=== PATIENT | male | born 1930 | race Caucasian/White ===

== ENCOUNTER 2017-06-16 20:40 | Inpatient (IN) | payer MEDICARE, MEDICAID ==
[~2017-06-16] VITALS: Ht 193 cm; Wt 109.8 kg
[2017-06-16] MEDS ORDERED: Acetaminophen 500mg (ES) tab ORAL ONE (21:00)
--- NOTE | 2017-06-16 21:11 | Emergency Room Report ---
History of Present Illness General Chief Complaint: Altered Level of Consciousness Source: EMS Present Illness HPI Is an 87-year-old male coming from home. He has unknown medical problem but appear to be aphasic. He was presents with altered mental status for last 2 days per EMS. Unfortunately no family member here for history. Unknown other medical history. History is very limited because patient is not answering. Allergies: Coded Allergies: No Known Allergies (Verified , 01/23/07) Patient History Past Medical History: see triage record, old chart reviewed, unable to obtain Past Surgical History: unable to obtain, other Pertinent Family History: unable to obtain Social History: Denies: alcohol use Immunizations: other Reviewed Nursing Documentation: PMH: Agreed, PSxH: Agreed Nursing Documentation-PMH Hx Hypertension: Yes Hx Pacemaker: Yes Hx Diabetes: Yes Review of Systems Constitutional: Reports: weakness Respiratory: Reports: cough All Other Systems: limited - Secondary to his mental status Physical Exam Vital Signs Date Time Temp Pulse Resp B/P (MAP) Pulse Ox O2 Delivery O2 Flow Rate FiO2 06/16/17 20:34 100.2 79 20 121/68 94 Room Air vitals with fever Sp02 EP Interpretation: reviewed, normal General Appearance: well appearing, no apparent distress, alert Head: normocephalic, atraumatic Eyes: bilateral eye PERRL, bilateral eye EOMI ENT: hearing grossly normal, normal pharynx Neck: full range of motion, supple, no meningismus Respiratory: chest non-tender, rhonchi Cardiovascular #1: regular rate, rhythm, no murmur Gastrointestinal: normal bowel sounds, non tender, no mass, no organomegaly, no bruit, non-distended Musculoskeletal: back normal, normal range of motion Neurologic: alert, grossly normal Psychiatric: mood/affect normal Skin: warm/dry Medical Decision Making Diagnostic Impression: Primary Impression: Sepsis Qualified Codes: A41.9 - Sepsis, unspecified organism Additional Impressions: Pneumonia Qualified Codes: J18.1 - Lobar pneumonia, unspecified organism Encephalopathy acute ER Course This patient presents with fever and altered mental status. He has left lower lobe infiltrate on the chest x-ray. Antibiotic started. He looks better after IV fluid. No evidence of ACS, PE, dissection to name a few. Will admit. I discussed the case with Dr. Priest who said the patient for admission. Laboratory Tests Test 06/16/17 21:00 06/16/17 21:20 06/16/17 23:00 White Blood Count 11.6 K/UL (4.8-10.8) H Red Blood Count 4.17 M/UL (4.70-6.10) L Hemoglobin 12.2 G/DL (14.2-18.0) L Hematocrit 39.2 % (42.0-52.0) L Mean Corpuscular Volume 94 FL (80-99) Mean Corpuscular Hemoglobin 29.1 PG (27.0-31.0) Mean Corpuscular Hemoglobin Concent 31.0 G/DL (32.0-36.0) L Red Cell Distribution Width 13.0 % (11.6-14.8) Platelet Count 250 K/UL (150-450) Mean Platelet Volume 6.3 FL (6.5-10.1) L Neutrophils (%) (Auto) 81.1 % (45.0-75.0) H Lymphocytes (%) (Auto) 10.4 % (20.0-45.0) L Monocytes (%) (Auto) 6.8 % (1.0-10.0) Eosinophils (%) (Auto) 0.7 % (0.0-3.0) Basophils (%) (Auto) 1.0 % (0.0-2.0) Sodium Level 130 mEQ/L (135-145) L Potassium Level 4.1 mEQ/L (3.4-4.9) Chloride Level 90 mEQ/L (98-107) L Carbon Dioxide Level 25 mEQ/L (20-30) Anion Gap 15 (5-15) Blood Urea Nitrogen 14 mg/dL (7-23) Creatinine 0.8 mg/dL (0.7-1.2) Estimat Glomerular Filtration Rate mL/min (>60) Glucose Level 161 mg/dL (74-106) H Lactic Acid Level 3.10 mmol/L (0.66-2.22) H Pending Calcium Level 9.4 mg/dL (8.6-10.2) Total Bilirubin 0.3 mg/dL (0.0-1.2) Aspartate Amino Transf (AST/SGOT) 8 U/L (5-40) Alanine Aminotransferase (ALT/SGPT) 7 U/L (3-41) Alkaline Phosphatase 99 U/L (40-129) Total Creatine Kinase 25 U/L (38-174) L Creatine Kinase MB 1.6 ng/mL (< 6.7) Creatine Kinase MB Relative Index 6.4 Troponin I < 0.30 ng/mL (<=0.30) Total Protein 6.7 g/dL (6.6-8.7) Albumin 3.4 g/dL (3.5-5.2) L Globulin 3.3 g/dL Albumin/Globulin Ratio 1.0 (1.0-2.7) Urine Color Pale yellow Urine Appearance Clear Urine pH 5 (4.5-8.0) Urine Specific [place] 1.010 (1.005-1.035) Urine Protein Negative (NEGATIVE) Urine Glucose (UA) Negative (NEGATIVE) Urine Ketones Negative (NEGATIVE) Urine Occult Blood 2+ (NEGATIVE) H Urine Nitrite Negative (NEGATIVE) Urine Bilirubin Negative (NEGATIVE) Urine Urobilinogen Normal MG/DL (0.0-1.0) Urine Leukocyte Esterase 1+ (NEGATIVE) H Urine RBC 2-4 /HPF (0 - 0) H Urine WBC 0-2 /HPF (0 - 0) Urine Squamous Epithelial Cells Few /LPF (NONE/OCC) Urine Bacteria Few /HPF (NONE) Lab Results Impression labs with elevated lactic acid EKG Diagnostic Results Rate: normal Rhythm: NSR ST Segments: no acute changes Rhythm Strip Diag. Results Rhythm Strip Time: 23:15 EP Interpretation: yes Rate: 60 Rhythm: NSR, no PVC's, other - paced Chest X-Ray Diagnostic Results Chest X-Ray Diagnostic Results : Chest X-Ray Ordered: Yes # of Views/Limited/Complete: 1 View Indication: Shortness of Breath EP Interpretation: Yes Interpretation: no effusion, no pneumothorax, other - LLL infiltrate Impression: Other - Left lower lobe infiltrate Electronically Signed by: Electronically signed by Morris Kraus MD Last Vital Signs Date Time Temp Pulse Resp B/P (MAP) Pulse Ox O2 Delivery O2 Flow Rate FiO2 06/16/17 20:34 100.2 79 20 121/68 94 Room Air Status: improved Disposition: ADMITTED INPATIENT Condition: Serious MORRIS KRAUS M.D. Jun 16, 2017 21:11
[2017-06-16 21:41] VITALS: BP 133/65
[2017-06-16 21:41] LABS: EOSINOPHILS % (AUTO) 0.7 % (0.0-3.0); LYMPHOCYTES % (AUTO) 10.4 % (20.0-45.0); MEAN CORPUSCULAR HEMOGLOBIN 29.1 PG (27.0-31.0); MEAN CORPUSCULAR VOLUME 94 FL (80-99); MEAN PLATELET VOLUME 6.3 FL (6.5-10.1); MONOCYTES % (AUTO) 6.8 % (1.0-10.0); NEUTROPHILS % (AUTO) 81.1 % (45.0-75.0); PLATELET COUNT 250 K/UL (150-450); RED BLOOD COUNT 4.17 M/UL (4.70-6.10); WHITE BLOOD COUNT 11.6 K/UL (4.8-10.8)
[2017-06-16 21:46] LABS: TROPONIN I < 0.30 ng/mL (<=0.30)
[2017-06-16 21:49] LABS: ALANINE AMINOTRANSFERASE 7 U/L (3-41); ANION GAP 15 (5-15); ASPARTATE AMINO TRANSFERASE 8 U/L (5-40); CALCIUM 9.4 mg/dL (8.6-10.2); CARBON DIOXIDE 25 mEQ/L (20-30); CHLORIDE 90 mEQ/L (98-107); CREATININE 0.8 mg/dL (0.7-1.2); HEMOLYSIS 0; POTASSIUM 4.1 mEQ/L (3.4-4.9); SODIUM 130 mEQ/L (135-145); TOTAL PROTEIN 6.7 g/dL (6.6-8.7)
[2017-06-16 21:50] LABS: REFLEX LACTIC ACID YES OR NO YES
[2017-06-16 21:59] LABS: CKMB 1.6 ng/mL (< 6.7)
[2017-06-16] MEDS ORDERED: Piperacillin/Tazobactam 4.5 GM in NS 110 ML IVPB ONE (22:00)
[2017-06-16 22:01] LABS: APPEARANCE,URINE CLEAR; KETONES,URINE NEGATIVE (NEGATIVE); LEUKOCYTE ESTERASE ,URINE 1+ (NEGATIVE); NITRITE,URINE NEGATIVE (NEGATIVE); PH,URINE 5 (4.5-8.0); PROTEIN,URINE NEGATIVE (NEGATIVE); UROBILINOGEN,URINE NORMAL MG/DL (0.0-1.0)
[2017-06-16] MEDS ORDERED: Zosyn 4.5gm inj ONE (22:01)
[2017-06-16 22:11] LABS: BACTERIA,URINE FEW /HPF; SQUAMOUS EPITHELIAL CELL,UR FEW /LPF (NONE/OCC); WBC,URINE 0-2 /HPF (0 - 0)
[2017-06-16] MEDS ORDERED: Miralax 17gm pkt ORAL PRN (23:15)
[2017-06-16] MEDS ORDERED: Morphine Sulfate 2mg/ml Inj IVP PRN (23:15)
[2017-06-16] MEDS ORDERED: Albuterol/Ipratropium 3ml neb HHN PRN (23:15)
[2017-06-16] MEDS ORDERED: CEPHALEXIN125 MG/5 M ORAL (23:22)
[2017-06-16] MEDS ORDERED: LEXAPRO10 MG ORAL (23:22)
[2017-06-16] MEDS ORDERED: AMARYL1 MG ORAL (23:22)
[2017-06-16] MEDS ORDERED: ATENOLOL25 MG ORAL (23:22)
[2017-06-16 23:47] VITALS: BP 123/73
[2017-06-17] MEDS ORDERED: Vancomycin 1 GM in D5W 275 ML IV SCH (00:30)
[2017-06-17] MEDS ORDERED: Cefepime 2gm ONE (01:57)
[2017-06-17] MEDS: Vancomycin 1.5 GM/D5W 250ML IVPB SCH ×2 (02:22→15:02)
[2017-06-17 04:00] VITALS: BP 128/60
[2017-06-17] MEDS: Cefepime HCl 2 GM in D5W 110 ML IV SCH ×2 (05:00→17:30)
[2017-06-17] MEDS: NovoLOG Insulin Flexpen SUBQ SCH ×4 (06:30→21:00)
[2017-06-17 08:00] VITALS: BP 133/71
[2017-06-17 08:18] LABS: BASOPHILS % (AUTO) 0.4 % (0.0-2.0); EOSINOPHILS % (AUTO) 0.7 % (0.0-3.0); LYMPHOCYTES % (AUTO) 8.4 % (20.0-45.0); MEAN CORPUSCULAR HEMOGLOBIN 31.4 PG (27.0-31.0); MEAN CORPUSCULAR HGB CONC 33.4 G/DL (32.0-36.0); MEAN CORPUSCULAR VOLUME 94 FL (80-99); MEAN PLATELET VOLUME 6.7 FL (6.5-10.1); MONOCYTES % (AUTO) 6.2 % (1.0-10.0); NEUTROPHILS % (AUTO) 84.3 % (45.0-75.0); PLATELET COUNT 241 K/UL (150-450); RED BLOOD COUNT 3.92 M/UL (4.70-6.10); RED CELL DISTRIBUTION WIDTH 13.1 % (11.6-14.8); WHITE BLOOD COUNT 9.8 K/UL (4.8-10.8)
[2017-06-17] MEDS: Heparin 5000 units/ml inj SUBQ SCH ×2 (08:23→22:25)
[2017-06-17 08:25] LABS: INR 0.9 (0.9-1.1); PROTHROMBIN TIME 9.6 SEC (9.30-11.50)
[2017-06-17] MEDS: Atenolol 25mg tab ORAL SCH (08:25)
[2017-06-17 08:54] LABS: URIC ACID 3.6 mg/dL (3.0-7.5)
[2017-06-17 08:57] LABS: THYROID STIMULATING HORMONE 1.76 uIU/mL (0.300-4.500)
[2017-06-17 09:42] LABS: ERYTHROCYTE SEDIMENTATION RATE 100 MM/HR (0-30)
[2017-06-17 10:10] LABS: ALANINE AMINOTRANSFERASE 6 U/L (3-41); ALBUMIN/GLOBULIN RATIO 0.8 (1.0-2.7); ANION GAP 15 (5-15); ASPARTATE AMINO TRANSFERASE 10 U/L (5-40); CALCIUM 9.5 mg/dL (8.6-10.2); CARBON DIOXIDE 25 mEQ/L (20-30); CHLORIDE 96 mEQ/L (98-107); CREATININE 0.7 mg/dL (0.7-1.2); HEMOLYSIS 2; POTASSIUM 3.9 mEQ/L (3.4-4.9); SODIUM 136 mEQ/L (135-145); TOTAL PROTEIN 6.9 g/dL (6.6-8.7)
[2017-06-17 10:17] LABS: RETICULOCYTE COUNT 1.8 % (0.0-2.0)
[2017-06-17 10:41] LABS: BAND NEUTROPHILS % (MANUAL) 0 % (0-8); BASOPHILS % (MANUAL) 0 % (0-2); EOSINOPHILS % (MANUAL) 1 % (0-3); LYMPHOCYTES % (MANUAL) 8 % (20-45); NEUTROPHILS % (MANUAL) 88 % (45-75); PLATELET ESTIMATE ADEQUATE; PLATELET MORPHOLOGY NORMAL; TOTAL CELLS COUNTED 100
[2017-06-17 10:43] LABS: LACTATE DEHYDROGENASE 122 U/L (135-230)
[2017-06-17 10:46] LABS: HEMOLYSIS 3; IRON 32 ug/dL (59-158); TOTAL IRON BINDING CAPACITY 216 ug/dL (250-400)
[2017-06-17 10:58] LABS: PATH BLOOD SMEAR/OMC SENT TO PATHOLOGIST
--- NOTE | 2017-06-17 11:24 | Diagnostic Imaging Report ---
Indication: Dyspnea Comparison: 01/21/2007 A single view chest radiograph was obtained. Findings: Some prominence of the interstitium and vascularity noted. The heart is enlarged. There is a pacemaker present on the left with 2 leads are noted. The bones are osteopenic. Impression: Interstitial edema/CHF suspected
--- NOTE | 2017-06-17 11:32 | History and Physical ---
History of Present Illness General Date patient seen: Jun 17, 2017 Reason for Hospitalization: Altered Level of Consciousness Present Illness HPI 87 year old male with pmhx of Allergies: Coded Allergies: No Known Allergies (Verified , 01/23/07) Medication History Scheduled Atenolol* (Tenormin*), Unknown Dose ORAL DAILY, (Reported) Cephalexin* (Cephalexin*), Unknown Dose ORAL Q6H, (Reported) Escitalopram Oxalate* (Lexapro*), Unknown Dose ORAL DAILY, (Reported) Glimepiride* (Amaryl*), Unknown Dose ORAL BEFORE BREAKFAST, (Reported) Patient History Healthcare decision maker Resuscitation status Full Code Advanced Directive on File Past Medical/Surgical History Past Medical/Surgical History: (1) Pacemaker (2) Diabetes mellitus (3) Hypertension Review of Systems Constitutional: Reports: malaise Respiratory: Reports: cough, shortness of breath Physical Exam General Appearance: WD/WN Lines, tubes and drains: peripheral HEENT: normocephalic, atraumatic Neck: non-tender, normal alignment Respiratory/Chest: chest wall non-tender, lungs clear, decreased breath sounds Breasts: no masses Cardiovascular/Chest: normal peripheral pulses Abdomen: normal bowel sounds, non tender Genitourinary/Rectal: normal genital exam, normal rectal exam Extremities: normal range of motion Last 24 Hour Vital Signs Date Time Temp Pulse Resp B/P (MAP) Pulse Ox O2 Delivery O2 Flow Rate FiO2 06/17/17 08:25 61 133/71 06/17/17 08:00 97.3 61 19 133/71 97 Room Air 06/17/17 04:00 62 06/17/17 04:00 97.0 61 18 128/60 94 Room Air 06/17/17 00:35 62 06/17/17 00:23 99.0 71 20 123/73 96 Room Air 06/16/17 23:55 99.0 06/16/17 23:47 99.0 71 20 123/73 96 Room Air 06/16/17 21:41 100.6 74 23 133/65 98 Room Air 06/16/17 20:34 100.2 79 20 121/68 94 Room Air Intake and Output 06/17/17 06/18/17 19:00 07:00 Intake Total 120 ml Balance 120 ml Intake Oral 120 ml Laboratory Tests Test 10/2/17 21:00 06/16/17:20 06/16/17 23:00 06/17/17 07:15 White Blood Count 11.6 K/UL (4.8-10.8) H 9.8 K/UL (4.8-10.8) Red Blood Count 4.17 M/UL (4.70-6.10) L 3.92 M/UL (4.70-6.10) L Hemoglobin 12.2 G/DL (14.2-18.0) L 12.3 G/DL (14.2-18.0) L Hematocrit 39.2 % (42.0-52.0) L 36.8 % (42.0-52.0) L Mean Corpuscular Volume 94 FL (80-99) 94 FL (80-99) Mean Corpuscular Hemoglobin 29.1 PG (27.0-31.0) 31.4 PG (27.0-31.0) H Mean Corpuscular Hemoglobin Concent 31.0 G/DL (32.0-36.0) L 33.4 G/DL (32.0-36.0) Red Cell Distribution Width 13.0 % (11.6-14.8) 13.1 % (11.6-14.8) Platelet Count 250 K/UL (150-450) 241 K/UL (150-450) Mean Platelet Volume 6.3 FL (6.5-10.1) L 6.7 FL (6.5-10.1) Neutrophils (%) (Auto) 81.1 % (45.0-75.0) H 84.3 % (45.0-75.0) H Lymphocytes (%) (Auto) 10.4 % (20.0-45.0) L 8.4 % (20.0-45.0) L Monocytes (%) (Auto) 6.8 % (1.0-10.0) 6.2 % (1.0-10.0) Eosinophils (%) (Auto) 0.7 % (0.0-3.0) 0.7 % (0.0-3.0) Basophils (%) (Auto) 1.0 % (0.0-2.0) 0.4 % (0.0-2.0) Sodium Level 130 mEQ/L (135-145) L 136 mEQ/L (135-145) Potassium Level 4.1 mEQ/L (3.4-4.9) 3.9 mEQ/L (3.4-4.9) Chloride Level 90 mEQ/L (98-107) L 96 mEQ/L (98-107) L Carbon Dioxide Level 25 mEQ/L (20-30) 25 mEQ/L (20-30) Anion Gap 15 (5-15) 15 (5-15) Blood Urea Nitrogen 14 mg/dL (7-23) 10 mg/dL (7-23) Creatinine 0.8 mg/dL (0.7-1.2) 0.7 mg/dL (0.7-1.2) Estimat Glomerular Filtration Rate mL/min (>60) mL/min (>60) Glucose Level 161 mg/dL (74-106) H 70 mg/dL (74-106) L Lactic Acid Level 3.10 mmol/L (0.66-2.22) H 1.90 mmol/L (0.66-2.22) Calcium Level 9.4 mg/dL (8.6-10.2) 9.5 mg/dL (8.6-10.2) Total Bilirubin 0.3 mg/dL (0.0-1.2) 0.4 mg/dL (0.0-1.2) Aspartate Amino Transf (AST/SGOT) 8 U/L (5-40) 10 U/L (5-40) Alanine Aminotransferase (ALT/SGPT) 7 U/L (3-41) 6 U/L (3-41) Alkaline Phosphatase 99 U/L (40-129) 97 U/L (40-129) Total Creatine Kinase 25 U/L (38-174) L Creatine Kinase MB 1.6 ng/mL (< 6.7) Creatine Kinase MB Relative Index 6.4 Troponin I < 0.30 ng/mL (<=0.30) Total Protein 6.7 g/dL (6.6-8.7) 6.9 g/dL (6.6-8.7) Albumin 3.4 g/dL (3.5-5.2) L 3.1 g/dL (3.5-5.2) L Globulin 3.3 g/dL 3.8 g/dL Albumin/Globulin Ratio 1.0 (1.0-2.7) 0.8 (1.0-2.7) L Urine Color Pale yellow Urine Appearance Clear Urine pH 5 (4.5-8.0) Urine Specific [place] 1.010 (1.005-1.035) Urine Protein Negative (NEGATIVE) Urine Glucose (UA) Negative (NEGATIVE) Urine Ketones Negative (NEGATIVE) Urine Occult Blood 2+ (NEGATIVE) H Urine Nitrite Negative (NEGATIVE) Urine Bilirubin Negative (NEGATIVE) Urine Urobilinogen Normal MG/DL (0.0-1.0) Urine Leukocyte Esterase 1+ (NEGATIVE) H Urine RBC 2-4 /HPF (0 - 0) H Urine WBC 0-2 /HPF (0 - 0) Urine Squamous Epithelial Cells Few /LPF (NONE/OCC) Urine Bacteria Few /HPF (NONE) Differential Total Cells Counted 100 Neutrophils % (Manual) 88 % (45-75) H Lymphocytes % (Manual) 8 % (20-45) L Monocytes % (Manual) 3 % (1-10) Eosinophils % (Manual) 1 % (0-3) Basophils % (Manual) 0 % (0-2) Band Neutrophils 0 % (0-8) Platelet Estimate Adequate Platelet Morphology Normal Red Blood Cell Morphology Normal Erythrocyte Sedimentation Rate 100 MM/HR (0-30) H Reticulocyte Count 1.8 % (0.0-2.0) Prothrombin Time 9.6 SEC (9.30-11.50) Prothromb Time International Ratio 0.9 (0.9-1.1) Activated Partial Thromboplast Time 31 SEC (23-33) Osmolality 278 mOsm/kg (297-317) L Uric Acid 3.6 mg/dL (3.0-7.5) Iron Level 32 ug/dL (59-158) L Total Iron Binding Capacity 216 ug/dL (250-400) L Percent Iron Saturation 15 % (15-50) Unsaturated Iron Binding 184 ug/dL (112-346) Lactate Dehydrogenase 122 U/L (135-230) L Carcinoembryonic Antigen 1.5 ng/mL Vitamin B12 Level 294 pg/mL (211-946) Folate Pending Thyroid Stimulating Hormone (TSH) 1.760 uIU/mL (0.300-4.500) Free Thyroxine 1.32 ng/dL (0.86-1.85) Free Triiodothyronine Pending Cortisol Pending Height (Feet): 6 Height (Inches): 4.00 Weight (Pounds): 242 Medications Current Medications Medications (Trade) Dose Ordered Sig/Heron Route PRN Reason Start Time Stop Time Status Last Admin Dose Admin Acetaminophen (Tylenol) 650 mg Q4H PRN ORAL fever 06/16/17 23:15 07/16/17 23:14 Albuterol/ Ipratropium (DuoNeb 0.5-3(2.5)mg/3ml) 3 ml Q4H PRN HHN Shortness of Breath 06/16/17 23:15 06/21/17 23:14 Atenolol (Tenormin) 25 mg DAILY ORAL 06/17/17 09:00 07/17/17 08:59 06/17/17 08:25 Cefepime HCl 2 gm/ Dextrose 110 ml @ 220 mls/hr Q12H IV 06/17/17 04:00 06/24/17 03:59 06/17/17 05:00 Dextrose (Dextrose 50%) STAT PRN IV Hypoglycemia 06/17/17 05:45 07/17/17 05:44 Escitalopram Oxalate (Lexapro) 10 mg DAILY ORAL 06/17/17 09:00 07/17/17 08:59 06/17/17 08:21 Heparin Sodium (Porcine) (Heparin 5000 units/ml) 5,000 units EVERY 12 HOURS SUBQ 06/17/17 09:00 07/17/17 08:59 06/17/17 08:23 Insulin Aspart (NovoLOG) BEFORE MEALS AND HS SUBQ 06/17/17 06:30 07/17/17 06:29 Morphine Sulfate (Morphine Sulfate) 2 mg Q4H PRN IVP Moderate Pain (Pain Scale 4-6) 06/16/17 23:15 06/23/17 23:14 Ondansetron HCl (Zofran) 4 mg Q6H PRN IVP Nausea & Vomiting 06/16/17 23:15 07/16/17 23:14 Phenazopyridine HCl (Pyridium) 100 mg DAILY PRN ORAL dysuria 06/16/17 23:15 07/16/17 23:14 Polyethylene Glycol (Miralax) 17 gm DAILYPRN PRN ORAL Constipation 06/16/17 23:15 07/16/17 23:14 Temazepam (Restoril) 15 mg HSPRN PRN ORAL Insomnia 06/16/17 23:15 06/23/17 23:14 Vancomycin HCl/ Dextrose 250 ml @ 125 mls/hr Q12H IVPB 06/17/17 02:00 06/22/17 01:59 06/17/17 02:22 Assessment/Plan Problem List: (1) Encephalopathy acute ICD Codes: G93.40 - Encephalopathy, unspecified SNOMED: 0079823 (2) Sepsis ICD Codes: A41.9 - Sepsis, unspecified organism SNOMED: 50005873 Qualifiers: Qualified Codes: A41.9 - Sepsis, unspecified organism (3) Pneumonia ICD Codes: J18.9 - Pneumonia, unspecified organism SNOMED: 596340698 Qualifiers: Qualified Codes: J18.1 - Lobar pneumonia, unspecified organism (4) Diabetes mellitus ICD Codes: E11.9 - Type 2 diabetes mellitus without complications SNOMED: 00999611 (5) Hypertension ICD Codes: I10 - Essential (primary) hypertension SNOMED: 05464790 (6) Pacemaker ICD Codes: Z95.0 - Presence of cardiac pacemaker SNOMED: 248386043, 583601978 Assessment/Plan respiratory treatment IV antibiotics chest pt check sputum cardio to see swallow study aspiration precaution ANABELL CONTRERAS Jun 17, 2017 11:32
[2017-06-17 12:00] VITALS: BP 144/88
--- NOTE | 2017-06-17 13:40 | Consultation ---
Consult Note Consult Note ams hs of ppi Subacute/chronic left convexity SDH Hx of previous falls Hx of R femoral neck fracture s/p R hip hemiarthroplasty Diabetes mellitus type 2. End-stage Alzheimer's dementia. CAD Hypertension. Hyperlipidemia. PVD BPH Major depressive disorder. Anxiety disorder. Hx of colon CA, s/p resection ? wether he needs to be re imaged ct of head cv stable will dc tele soon repeat another set of cardiac enzyme [id number] Patient Instructions: Discharge Medication List TAKE these medications~ ATENOLOL PO Take 50 mg by mouth daily. bisacodyl 10 mg suppository Commonly known as: ~DULCOLAX Insert or apply 1 suppository rectally daily as needed for Constipation. donepezil 5 mg oral tablet Commonly known as: ~ARICEPT Take 1 Tab by mouth nightly. escitalopram oxalate 10 mg oral tablet Commonly known as: ~LEXAPRO Take 1 Tab by mouth daily. JANUMET 50-1,000 mg oral tablet Generic drug: ~sitaGLIPtin-metformin Take 1 Tab by mouth 2 times daily. levETIRAcetam 500 mg oral tablet Commonly known as: ~KEPPRA Take 1 tablet by mouth every 12 hours. QUEtiapine 25 mg oral tablet Commonly known as: ~SEROquel Take 0.5 tablets by mouth at bedtime as needed for Other (agitation). tamsulosin 0.4 mg capsule Commonly known as: ~FLOMAX Take 1 Cap by mouth daily after breakfast. valsartan 160 mg oral tablet Commonly known as: ~DIOVAN Take 1 Tab by mouth daily. VANE GUTIÉRREZ Jun 17, 2017 13:40
[2017-06-17 16:00] VITALS: BP 129/68
[2017-06-17 16:35] LABS: TROPONIN I < 0.30 ng/mL (<=0.30)
--- NOTE | 2017-06-17 16:52 | Wound Care Consultation ---
Wound Assessment Wound Assessment #1: Wound Number: 1 Wound Present on Admission: Yes New Wound: No Status Change of Wound: No Wound Location Body Site Modif: right Wound Location Body Site: buttocks Wound Type: pressure ulcer Génesis Test: Does not Génesis Pressure Ulcer Stage: deep tissue injury Wound Thickness: Full Thickness Wound Length: 2.0 Wound Width: 2.0 Wound Depth: utd Percent of Wound Purple/Maroon: 100 Wound Drainage Amount: None Wound Drainage Odor: None/Absent Tissue Surrounding Wound: Denuded Wound General Appearance: Reddened - purple Wound Assessment #2: Wound Number: 2 Wound Present on Admission: Yes New Wound: No Status Change of Wound: No Wound Location Body Site Modif: left, right, lower Wound Location Body Site: leg Wound Type: scab - scattered multiple Génesis Test: Does not Génesis Wound Thickness: Full Thickness Wound Drainage Amount: None Wound Drainage Odor: None/Absent Tissue Surrounding Wound: Intact Wound General Appearance: Reddened Wound Comment #1 Right buttock DTI pressure ulcer. With denuded Surrounding skin. #2 Left and right lower legs with scattered multiple dry scabs Recommendation -Local wound care per protocol -Keep clean and dry -Turn and reposition -Optimize nutrition -Low air loss mattress -Offload both heels -Heel protector on both heels -Assess and f/u accordingly for any changes LAVERNE ZARCO RN Jun 17, 2017 16:52
--- NOTE | 2017-06-17 18:00 | Cardiology Report ---
APPROVED REPORT EKG Measurement Heart [id number] [place] [id number] av sequential pacing
--- NOTE | 2017-06-17 18:01 | Consultation ---
History of Present Illness General Date patient seen: Jun 17, 2017 Time patient seen: 18:21 Chief Complaint: Altered Level of Consciousness Reason for Consultation: possible pna Present Illness HPI 87 y/o M with hx of HTN, Dm2, multiple falls, subacute/chronic left convexity SDH, R femoral neck fracture s/p R hip hemiarthroplasthy, End-stage Alzheimer;s Dementia, CAD, s/p PPM, HLD, MDD/Anxiety Disorder, Colon CA s/p resection presents to ED on 06/16 with 2 days of AMS. Patient with 2 episodes of low grade fever, no further fevers. Mild leukocytosis , now resolved CXR with CHF. Started on IV cefepime and vancomycin.. Allergies: Coded Allergies: No Known Allergies (Verified , 01/23/07) Medication History Scheduled Atenolol* (Tenormin*), Unknown Dose ORAL DAILY, (Reported) Cephalexin* (Cephalexin*), Unknown Dose ORAL Q6H, (Reported) Escitalopram Oxalate* (Lexapro*), Unknown Dose ORAL DAILY, (Reported) Glimepiride* (Amaryl*), Unknown Dose ORAL BEFORE BREAKFAST, (Reported) Patient History Healthcare decision maker Resuscitation status Full Code Advanced Directive on File Patient History Narrative as above: Family history: non pertienent for ID Social hx:unable to obtain given dmentia. Review of Systems ROS Narrative unable to obtain given dementia. Physical Exam Physical Exam Narrative General Appearance: WD/WN Lines, tubes and drains: peripheral HEENT: normocephalic, atraumatic Neck: non-tender, normal alignment Respiratory/Chest: chest wall non-tender, lungs clear, decreased breath sounds Breasts: no masses Cardiovascular/Chest: normal peripheral pulses Abdomen: normal bowel sounds, non tender Genitourinary/Rectal: normal genital exam, normal rectal exam Extremities: normal range of motion Last 24 Hour Vital Signs Date Time Temp Pulse Resp B/P (MAP) Pulse Ox O2 Delivery O2 Flow Rate FiO2 06/17/17 12:00 98.2 76 21 144/88 97 Room Air 06/17/17 12:00 67 06/17/17 08:25 61 133/71 06/17/17 08:15 68 18 Room Air 21 06/17/17 08:00 97.3 61 19 133/71 97 Room Air 06/17/17 08:00 60 06/17/17 04:00 62 06/17/17 04:00 97.0 61 18 128/60 94 Room Air 06/17/17 00:35 62 06/17/17 00:23 99.0 71 20 123/73 96 Room Air 06/16/17 23:55 99.0 06/16/17 23:47 99.0 71 20 123/73 96 Room Air 06/16/17 21:41 100.6 74 23 133/65 98 Room Air 06/16/17 20:34 100.2 79 20 121/68 94 Room Air Intake and Output 06/17/17 06/18/17 19:00 07:00 Intake Total 445 ml Balance 445 ml Intake Oral 320 ml IV Total 125 ml Laboratory Tests Test 06/16/17 21:00 06/16/17 21:20 06/16/17 23:00 06/17/17 07:15 White Blood Count 11.6 K/UL (4.8-10.8) H 9.8 K/UL (4.8-10.8) Red Blood Count 4.17 M/UL (4.70-6.10) L 3.92 M/UL (4.70-6.10) L Hemoglobin 12.2 G/DL (14.2-18.0) L 12.3 G/DL (14.2-18.0) L Hematocrit 39.2 % (42.0-52.0) L 36.8 % (42.0-52.0) L Mean Corpuscular Volume 94 FL (80-99) 94 FL (80-99) Mean Corpuscular Hemoglobin 29.1 PG (27.0-31.0) 31.4 PG (27.0-31.0) H Mean Corpuscular Hemoglobin Concent 31.0 G/DL (32.0-36.0) L 33.4 G/DL (32.0-36.0) Red Cell Distribution Width 13.0 % (11.6-14.8) 13.1 % (11.6-14.8) Platelet Count 250 K/UL (150-450) 241 K/UL (150-450) Mean Platelet Volume 6.3 FL (6.5-10.1) L 6.7 FL (6.5-10.1) Neutrophils (%) (Auto) 81.1 % (45.0-75.0) H 84.3 % (45.0-75.0) H Lymphocytes (%) (Auto) 10.4 % (20.0-45.0) L 8.4 % (20.0-45.0) L Monocytes (%) (Auto) 6.8 % (1.0-10.0) 6.2 % (1.0-10.0) Eosinophils (%) (Auto) 0.7 % (0.0-3.0) 0.7 % (0.0-3.0) Basophils (%) (Auto) 1.0 % (0.0-2.0) 0.4 % (0.0-2.0) Sodium Level 130 mEQ/L (135-145) L 136 mEQ/L (135-145) Potassium Level 4.1 mEQ/L (3.4-4.9) 3.9 mEQ/L (3.4-4.9) Chloride Level 90 mEQ/L (98-107) L 96 mEQ/L (98-107) L Carbon Dioxide Level 25 mEQ/L (20-30) 25 mEQ/L (20-30) Anion Gap 15 (5-15) 15 (5-15) Blood Urea Nitrogen 14 mg/dL (7-23) 10 mg/dL (7-23) Creatinine 0.8 mg/dL (0.7-1.2) 0.7 mg/dL (0.7-1.2) Estimat Glomerular Filtration Rate mL/min (>60) mL/min (>60) Glucose Level 161 mg/dL (74-106) H 70 mg/dL (74-106) L Lactic Acid Level 3.10 mmol/L (0.66-2.22) H 1.90 mmol/L (0.66-2.22) Calcium Level 9.4 mg/dL (8.6-10.2) 9.5 mg/dL (8.6-10.2) Total Bilirubin 0.3 mg/dL (0.0-1.2) 0.4 mg/dL (0.0-1.2) Aspartate Amino Transf (AST/SGOT) 8 U/L (5-40) 10 U/L (5-40) Alanine Aminotransferase (ALT/SGPT) 7 U/L (3-41) 6 U/L (3-41) Alkaline Phosphatase 99 U/L (40-129) 97 U/L (40-129) Total Creatine Kinase 25 U/L (38-174) L Creatine Kinase MB 1.6 ng/mL (< 6.7) Creatine Kinase MB Relative Index 6.4 Troponin I < 0.30 ng/mL (<=0.30) Total Protein 6.7 g/dL (6.6-8.7) 6.9 g/dL (6.6-8.7) Albumin 3.4 g/dL (3.5-5.2) L 3.1 g/dL (3.5-5.2) L Globulin 3.3 g/dL 3.8 g/dL Albumin/Globulin Ratio 1.0 (1.0-2.7) 0.8 (1.0-2.7) L Urine Color Pale yellow Urine Appearance Clear Urine pH 5 (4.5-8.0) Urine Specific Grimsley 1.010 (1.005-1.035) Urine Protein Negative (NEGATIVE) Urine Glucose (UA) Negative (NEGATIVE) Urine Ketones Negative (NEGATIVE) Urine Occult Blood 2+ (NEGATIVE) H Urine Nitrite Negative (NEGATIVE) Urine Bilirubin Negative (NEGATIVE) Urine Urobilinogen Normal MG/DL (0.0-1.0) Urine Leukocyte Esterase 1+ (NEGATIVE) H Urine RBC 2-4 /HPF (0 - 0) H Urine WBC 0-2 /HPF (0 - 0) Urine Squamous Epithelial Cells Few /LPF (NONE/OCC) Urine Bacteria Few /HPF (NONE) Differential Total Cells Counted 100 Neutrophils % (Manual) 88 % (45-75) H Lymphocytes % (Manual) 8 % (20-45) L Monocytes % (Manual) 3 % (1-10) Eosinophils % (Manual) 1 % (0-3) Basophils % (Manual) 0 % (0-2) Band Neutrophils 0 % (0-8) Platelet Estimate Adequate Platelet Morphology Normal Red Blood Cell Morphology Normal Erythrocyte Sedimentation Rate 100 MM/HR (0-30) H Reticulocyte Count 1.8 % (0.0-2.0) Prothrombin Time 9.6 SEC (9.30-11.50) Prothromb Time International Ratio 0.9 (0.9-1.1) Activated Partial Thromboplast Time 31 SEC (23-33) Osmolality 278 mOsm/kg (297-317) L Uric Acid 3.6 mg/dL (3.0-7.5) Iron Level 32 ug/dL (59-158) L Total Iron Binding Capacity 216 ug/dL (250-400) L Percent Iron Saturation 15 % (15-50) Unsaturated Iron Binding 184 ug/dL (112-346) Lactate Dehydrogenase 122 U/L (135-230) L Carcinoembryonic Antigen 1.5 ng/mL Vitamin B12 Level 294 pg/mL (211-946) Folate Pending Thyroid Stimulating Hormone (TSH) 1.760 uIU/mL (0.300-4.500) Free Thyroxine 1.32 ng/dL (0.86-1.85) Free Triiodothyronine Pending Cortisol Pending Test 06/17/17 16:00 Troponin I < 0.30 ng/mL (<=0.30) Height (Feet): 6 Height (Inches): 4.00 Weight (Pounds): 242 Medications Current Medications Medications (Trade) Dose Ordered Sig/Heron Route PRN Reason Start Time Stop Time Status Last Admin Dose Admin Acetaminophen (Tylenol) 650 mg Q4H PRN ORAL fever 06/16/17 23:15 07/16/17 23:14 Albuterol/ Ipratropium (DuoNeb 0.5-3(2.5)mg/3ml) 3 ml Q4H PRN HHN Shortness of Breath 06/16/17 23:15 06/21/17 23:14 Atenolol (Tenormin) 25 mg DAILY ORAL 06/17/17 09:00 07/17/17 08:59 06/17/17 08:25 Cefepime HCl 2 gm/ Dextrose 110 ml @ 220 mls/hr Q12H IV 06/17/17 04:00 06/24/17 03:59 06/17/17 17:30 Dextrose (Dextrose 50%) STAT PRN IV Hypoglycemia 06/17/17 05:45 07/17/17 05:44 Escitalopram Oxalate (Lexapro) 10 mg DAILY ORAL 06/17/17 09:00 07/17/17 08:59 06/17/17 08:21 Heparin Sodium (Porcine) (Heparin 5000 units/ml) 5,000 units EVERY 12 HOURS SUBQ 06/17/17 09:00 07/17/17 08:59 06/17/17 08:23 Insulin Aspart (NovoLOG) BEFORE MEALS AND HS SUBQ 06/17/17 06:30 07/17/17 06:29 06/17/17 17:34 Morphine Sulfate (Morphine Sulfate) 2 mg Q4H PRN IVP Moderate Pain (Pain Scale 4-6) 06/16/17 23:15 06/23/17 23:14 Ondansetron HCl (Zofran) 4 mg Q6H PRN IVP Nausea & Vomiting 06/16/17 23:15 07/16/17 23:14 Phenazopyridine HCl (Pyridium) 100 mg DAILY PRN ORAL dysuria 06/16/17 23:15 07/16/17 23:14 Polyethylene Glycol (Miralax) 17 gm DAILYPRN PRN ORAL Constipation 06/16/17 23:15 07/16/17 23:14 Temazepam (Restoril) 15 mg HSPRN PRN ORAL Insomnia 06/16/17 23:15 06/23/17 23:14 Vancomycin HCl/ Dextrose 250 ml @ 125 mls/hr Q12H IVPB 06/17/17 02:00 06/22/17 01:59 06/17/17 15:02 Objective Narrative General Appearance: WD/WN Lines, tubes and drains: peripheral HEENT: normocephalic, atraumatic Neck: non-tender, normal alignment Respiratory/Chest: chest wall non-tender, lungs clear, decreased breath sounds Breasts: no masses Cardiovascular/Chest: normal peripheral pulses Abdomen: normal bowel sounds, non tender Genitourinary/Rectal: normal genital exam, normal rectal exam Extremities: normal range of motion Assessment/Plan Assessment/Plan Abx: IV Vanco/ Cefepime 06/17- Zosyn x1 06/16 Levaquin x1 06/16 Assesment: AMS- has baseline end-stage dementia Low grade fever, resolved Leukocytosis, mild- resolved -u/a neg Pulmonary edema, ?possible PNA -CXR: Interstitial edema/CHF suspected Elevated ESR HTN, Dm2, multiple falls, subacute/chronic left convexity SDH, R femoral neck fracture s/p R hip hemiarthroplasthy, End-stage Alzheimer;s Dementia, CAD, s/p PPM, HLD, MDD/Anxiety Disorder, Colon CA s/p resection Plan: -Transition IV Vancomcyin and Cefepime to IV Ceftriaxone (will hold on azithromcyin given prolonged QTC) -obtain sputum cx -f/u cx -Monitor CBC/BMP, temperatures -agree with swallow evaluation -aspiration precautions. Thank you for this consultation. Will continue to follow along with you. Discussed with LUPE. Brianna Bose M.D. Jun 17, 2017 18:01
[2017-06-17 20:00] VITALS: BP_SYST 67
[2017-06-17 22:00] VITALS: BP 108/67
--- NOTE | 2017-06-17 22:30 | Consultation ---
DATE OF CONSULTATION: 06/17/2017 CARDIOLOGY CONSULTATION CONSULTING PHYSICIAN: Mushtaq Medley M.D. REFERRING PHYSICIAN: Sebastian Priest M.D. REASON FOR REFERRAL: Altered level of consciousness. History Of Present Illness: This is an unfortunate, elderly [place]ian gentleman, who really is not able to provide any meaningful history whatsoever. Information is obtained from my review of the patient's present chart here and from [facility] records as well. Emergency data indicates he was brought in for altered mental status for the past two days. Per Emergency Medical Services, no family members were available and history was very limited in obtaining. The patient was diagnosed with left lower lobe infiltrate on chest x-ray was felt that may have toxic metabolic encephalopathy, and was admitted to the hospital in the care of Dr. Priest. This consultation is requested as the patient has pacemaker. I have had a chance to review the [facility] medical records and appears that the patient has recently been discharged from [facility] and discharge diagnoses were status post fall subacute and chronic left convexity subdural hematoma, history of previous fall, history of right femoral neck fracture, history of right hemiarthroplasty, diabetes mellitus, end-stage Alzheimer's dementia, coronary disease, hypertension, hyperlipidemia, peripheral vascular disease, benign prostatic hypertrophy, depression disorder, anxiety disorder, history of colon cancer status post resection. The patient was apparently seen by a neurosurgeon and Neurology not felt to be a candidate for any intervention and was started on antiseizure regimens with improvement in his mentation. His [facility] chart indicates he has no known drug allergies. Past Medical History: Also includes a history of benign prostatic hypertrophy. The patient underwent placement of dual-chamber pacemaker implantation by Dr. Michael back in 2015 for irreversible Mobitz 2 heart block and a Biotronik Etrinsa model #[id number] was implanted at that time. SURGICAL HISTORY: Positive for laparoscopic colectomy. Social History: There is no history of alcohol, smoking, or drug use. Resides in a convalescent facility at the present time. REVIEW OF SYSTEMS: Really unable to obtain. PHYSICAL EXAMINATION: General: Shows to be overweight elderly gentleman, awake and responsive, but really noncommunicative, not following any commands. Neck: Supple. No jugular venous distention. No abdominojugular reflux noted. LUNGS: Clear to auscultation and percussion. Cardiac: S1 is normal. S2 is normal. Regular rate and rhythm. No RV lift, heaves, or thrills noted. ABDOMEN: Soft and nontender. Positive bowel sounds. EXTREMITIES: No clubbing, cyanosis, nor is there any edema. Laboratory And Diagnostic Data: White count 9.8 down from 11.6, hemoglobin 12.3, and platelet count 341, 88 polys, 8 lymphocytes, sedimentation rate 100, and reticulocyte count 1.8. Sodium 136, potassium 3.9, chloride 96, bicarbonate 25, BUN of 10, creatinine 0.7, and glucose of 70, 15% saturation with INR 32. His LDH is 122. Albumin of 3.2 and TSH of 1.7. Sodium 140, potassium 4.1, chloride 90, bicarbonate 25, BUN 14, creatinine 0.8, and glucose of 161. Earlier troponin was less than 0.03 only on one occasion was not checked. His EKG shows a paced rhythm and his AV sequential pacing. ASSESSMENT: 1. Altered mentation. 2. History of permanent pacemaker implantation. 3. History of prior fall back in April 2016. 4. History of permanent pacemaker implantation. 5. Status post fall. 6. Subacute chronic left convexity subdural hematoma. 7. History of previous falls. 8. History of femoral neck fractures. 9. Hemiarthroplasty. 10. Diabetes mellitus. 11. End-stage Alzheimer's dementia. 12. Prior history of coronary disease. 13. History of hypertension. 14. Hyperlipidemia. 15. Peripheral vascular disease. 16. Prostatic hypertrophy. 17. Depression. 18. Anxiety. 19. History of colon cancer. Plan: Dr. Priest, this patient was seen in cardiac consultation. From a cardiac point of view, he appears to be relatively stable. His telemetry is sinus. His blood pressure is in 130s/70s with heart rates in the 60s and temperature is 97 degrees axillary. He did have some temperature of 100.6 at time of this dictation. He is being treated for possibility of pneumonia with resultant subdural hematoma. The question is whether he needs to be re-imaged from a neuro point of view. He will have another set of cardiac enzymes prior to discontinuation of the telemetry monitoring tomorrow. Mushtaq Daneshrad, M.D. DR: BEKA JOB#: [id number] CC:
[2017-06-18] VITALS: BP 127/64
[2017-06-18 04:00] VITALS: BP 134/70
[2017-06-18] MEDS: cefTRIAXone 1 GM in D5W 55 ML IVPB SCH (05:51)
[2017-06-18] MEDS: NovoLOG Insulin Flexpen SUBQ SCH ×4 (06:30→21:00)
[2017-06-18 08:21] VITALS: BP 142/75
[2017-06-18 08:23] LABS: BASOPHILS % (AUTO) 1.5 % (0.0-2.0); EOSINOPHILS % (AUTO) 3.1 % (0.0-3.0); MEAN CORPUSCULAR HEMOGLOBIN 31.6 PG (27.0-31.0); MEAN CORPUSCULAR HGB CONC 33.8 G/DL (32.0-36.0); MEAN CORPUSCULAR VOLUME 93 FL (80-99); MONOCYTES % (AUTO) 6.2 % (1.0-10.0); NEUTROPHILS % (AUTO) 76.2 % (45.0-75.0); PLATELET COUNT 242 K/UL (150-450); RED BLOOD COUNT 3.76 M/UL (4.70-6.10); RED CELL DISTRIBUTION WIDTH 12.8 % (11.6-14.8); WHITE BLOOD COUNT 7.8 K/UL (4.8-10.8)
[2017-06-18] MEDS: Atenolol 25mg tab ORAL SCH (08:30)
[2017-06-18] MEDS: Heparin 5000 units/ml inj SUBQ SCH ×2 (08:32→21:38)
[2017-06-18 08:35] LABS: ALANINE AMINOTRANSFERASE 6 U/L (3-41); ALBUMIN/GLOBULIN RATIO 0.9 (1.0-2.7); ANION GAP 10 (5-15); ASPARTATE AMINO TRANSFERASE 11 U/L (5-40); CALCIUM 9.1 mg/dL (8.6-10.2); CARBON DIOXIDE 28 mEQ/L (20-30); CHLORIDE 93 mEQ/L (98-107); CREATININE 0.7 mg/dL (0.7-1.2); HEMOLYSIS 1; POTASSIUM 3.7 mEQ/L (3.4-4.9); SODIUM 131 mEQ/L (135-145); TOTAL PROTEIN 6.2 g/dL (6.6-8.7)
--- NOTE | 2017-06-18 11:21 | Diagnostic Imaging Report ---
Indication: Dyspnea Comparison: June 16, 2017 A single view chest radiograph was obtained. Findings: Heart size is normal. Aorta is calcified. Mild CHF suspected. Pacemaker again noted. Impression: No change.
[2017-06-18 11:29] VITALS: BP 132/72
--- NOTE | 2017-06-18 12:28 | Pulmonology Progress Note ---
Assessment/Plan Problems: (1) Encephalopathy acute (2) Sepsis (3) Pneumonia (4) Diabetes mellitus (5) Hypertension (6) Pacemaker Assessment/Plan improving afebrile cardiology note appreciated check sputum respiratory treatment Subjective ROS Limited/Unobtainable: No Constitutional: Reports: no symptoms HEENT: Repors: no symptoms Respiratory: Reports: no symptoms Allergies: Coded Allergies: No Known Allergies (Verified , 01/23/07) Objective Last 24 Hour Vital Signs Date Time Temp Pulse Resp B/P (MAP) Pulse Ox O2 Delivery O2 Flow Rate FiO2 06/18/17 11:29 97.1 62 20 132/72 98 Room Air 06/18/17 08:30 64 142/75 06/18/17 08:21 97.0 64 20 142/75 97 Room Air 06/18/17 07:29 70 18 Room Air 21 06/18/17 04:00 72 06/18/17 04:00 96.9 69 20 134/70 93 Room Air 06/18/17 00:00 98.1 75 23 127/64 95 Room Air 06/17/17 22:00 108/67 06/17/17 20:00 72 06/17/17 20:00 95.7 70 20 67/ 96 Room Air 06/17/17 19:00 71 18 Room Air 21 06/17/17 16:00 98.1 83 23 129/68 97 Room Air 06/17/17 16:00 72 General Appearance: WD/WN HEENT: normocephalic, atraumatic Respiratory/Chest: chest wall non-tender, lungs clear Cardiovascular: normal peripheral pulses, normal rate Abdomen: normal bowel sounds, soft, non tender, no organomegaly Genitourinary: normal external genitalia Extremities: no cyanosis 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, no motor/sensory deficits Lymphatic: no neck adenopathy Microbiology Date/Time Source Procedure Growth Status 06/16/17 21:15 Blood Blood Culture - Preliminary NO GROWTH AFTER 24 HOURS Resulted 06/16/17 21:00 Blood Blood Culture - Preliminary NO GROWTH AFTER 24 HOURS Resulted 06/17/17 00:45 Buttock Right Gram Stain Pending Resulted 06/17/17 00:45 Buttock Right Wound Culture - Preliminary Resulted Laboratory Tests 06/17/17 16:00: Troponin I < 0.30 06/18/17 07:25: White Blood Count 7.8, Red Blood Count 3.76L, Hemoglobin 11.9L, Hematocrit 35.1L , Mean Corpuscular Volume 93, Mean Corpuscular Hemoglobin 31.6H, Mean Corpuscular Hemoglobin Concent 33.8, Red Cell Distribution Width 12.8, Platelet Count 242, Mean Platelet Volume 7.0, Neutrophils (%) (Auto) 76.2H, Lymphocytes ( %) (Auto) 13.0L, Monocytes (%) (Auto) 6.2, Eosinophils (%) (Auto) 3.1H, Basophils (%) (Auto) 1.5, Sodium Level 131L, Potassium Level 3.7, Chloride Level 93L, Carbon Dioxide Level 28, Anion Gap 10, Blood Urea Nitrogen 11, Creatinine 0.7, Estimat Glomerular Filtration Rate , Glucose Level 116H, Calcium Level 9.1, Total Bilirubin 0.3, Aspartate Amino Transf (AST/SGOT) 11, Alanine Aminotransferase (ALT/SGPT) 6, Alkaline Phosphatase 100, Pro-B-Type Natriuretic Peptide 759H, Total Protein 6.2L, Albumin 3.0L, Globulin 3.2, Albumin/Globulin Ratio 0.9L Current Medications Medications (Trade) Dose Ordered Sig/Heron Route PRN Reason Start Time Stop Time Status Last Admin Dose Admin Acetaminophen (Tylenol) 650 mg Q4H PRN ORAL fever 06/16/17 23:15 07/16/17 23:14 Albuterol/ Ipratropium (DuoNeb 0.5-3(2.5)mg/3ml) 3 ml Q4H PRN HHN Shortness of Breath 06/16/17 23:15 06/21/17 23:14 Atenolol (Tenormin) 25 mg DAILY ORAL 06/17/17 09:00 07/17/17 08:59 06/18/17 08:30 Ceftriaxone Sodium 1 gm/ Dextrose 55 ml @ 110 mls/hr Q24H IVPB 06/18/17 06:00 06/25/17 05:59 06/18/17 05:51 Dextrose (Dextrose 50%) STAT PRN IV Hypoglycemia 06/17/17 05:45 07/17/17 05:44 Escitalopram Oxalate (Lexapro) 10 mg DAILY ORAL 06/17/17 09:00 07/17/17 08:59 06/18/17 08:29 Heparin Sodium (Porcine) (Heparin 5000 units/ml) 5,000 units EVERY 12 HOURS SUBQ 06/17/17 09:00 07/17/17 08:59 06/18/17 08:32 Insulin Aspart (NovoLOG) BEFORE MEALS AND HS SUBQ 06/17/17 06:30 07/17/17 06:29 06/18/17 12:16 Morphine Sulfate (Morphine Sulfate) 2 mg Q4H PRN IVP Moderate Pain (Pain Scale 4-6) 06/16/17 23:15 06/23/17 23:14 Ondansetron HCl (Zofran) 4 mg Q6H PRN IVP Nausea & Vomiting 06/16/17 23:15 07/16/17 23:14 Phenazopyridine HCl (Pyridium) 100 mg DAILY PRN ORAL dysuria 06/16/17 23:15 07/16/17 23:14 Polyethylene Glycol (Miralax) 17 gm DAILYPRN PRN ORAL Constipation 06/16/17 23:15 07/16/17 23:14 Temazepam (Restoril) 15 mg HSPRN PRN ORAL Insomnia 06/16/17 23:15 06/23/17 23:14 ANABELL CONTRERAS Jun 18, 2017 12:28
[2017-06-18 15:22] VITALS: BP 133/73
--- NOTE | 2017-06-18 19:59 | Cardiology Progress Note ---
Assessment/Plan Assessment/Plan 1. Altered mentation. 2. History of permanent pacemaker implantation. 3. Subacute chronic left convexity subdural hematoma 4. History of permanent pacemaker implantation. 5. Status post fall. not seem to be pacer dependent doubt pacer mal fucntion keep on tele medina have pacer interrogation in am d/w rn on severl occasions trop neg pro bnp not sig elevated Subjective ROS Limited/Unobtainable: Yes Objective Last 24 Hour Vital Signs Date Time Temp Pulse Resp B/P (MAP) Pulse Ox O2 Delivery O2 Flow Rate FiO2 06/18/17 19:19 64 18 Room Air 21 06/18/17 15:22 96.4 61 20 133/73 99 Room Air 06/18/17 12:00 62 06/18/17 11:29 97.1 62 20 132/72 98 Room Air 06/18/17 08:30 64 142/75 06/18/17 08:21 97.0 64 20 142/75 97 Room Air 06/18/17 08:00 68 06/18/17 07:29 70 18 Room Air 21 06/18/17 04:00 72 06/18/17 04:00 96.9 69 20 134/70 93 Room Air 06/18/17 00:00 98.1 75 23 127/64 95 Room Air 06/17/17 22:00 108/67 06/17/17 20:00 72 06/17/17 20:00 95.7 70 20 67/ 96 Room Air General Appearance: no apparent distress, alert Neck: no JVD Cardiovascular: normal rate, regular rhythm Respiratory/Chest: lungs clear, normal breath sounds Abdomen: normal bowel sounds, non tender, soft Extremities: no swelling Intake and Output 06/18/17 06/19/17 19:00 07:00 Intake Total 620 ml Output Total 1225 ml Balance -605 ml Intake Oral 620 ml Output Urine Total 1225 ml Laboratory Tests Test 06/18/17 07:25 White Blood Count 7.8 K/UL (4.8-10.8) Red Blood Count 3.76 M/UL (4.70-6.10) L Hemoglobin 11.9 G/DL (14.2-18.0) L Hematocrit 35.1 % (42.0-52.0) L Mean Corpuscular Volume 93 FL (80-99) Mean Corpuscular Hemoglobin 31.6 PG (27.0-31.0) H Mean Corpuscular Hemoglobin Concent 33.8 G/DL (32.0-36.0) Red Cell Distribution Width 12.8 % (11.6-14.8) Platelet Count 242 K/UL (150-450) Mean Platelet Volume 7.0 FL (6.5-10.1) Neutrophils (%) (Auto) 76.2 % (45.0-75.0) H Lymphocytes (%) (Auto) 13.0 % (20.0-45.0) L Monocytes (%) (Auto) 6.2 % (1.0-10.0) Eosinophils (%) (Auto) 3.1 % (0.0-3.0) H Basophils (%) (Auto) 1.5 % (0.0-2.0) Sodium Level 131 mEQ/L (135-145) L Potassium Level 3.7 mEQ/L (3.4-4.9) Chloride Level 93 mEQ/L (98-107) L Carbon Dioxide Level 28 mEQ/L (20-30) Anion Gap 10 (5-15) Blood Urea Nitrogen 11 mg/dL (7-23) Creatinine 0.7 mg/dL (0.7-1.2) Estimat Glomerular Filtration Rate mL/min (>60) Glucose Level 116 mg/dL (74-106) H Calcium Level 9.1 mg/dL (8.6-10.2) Total Bilirubin 0.3 mg/dL (0.0-1.2) Aspartate Amino Transf (AST/SGOT) 11 U/L (5-40) Alanine Aminotransferase (ALT/SGPT) 6 U/L (3-41) Alkaline Phosphatase 100 U/L (40-129) Pro-B-Type Natriuretic Peptide 759 pg/mL (0-450) H Total Protein 6.2 g/dL (6.6-8.7) L Albumin 3.0 g/dL (3.5-5.2) L Globulin 3.2 g/dL Albumin/Globulin Ratio 0.9 (1.0-2.7) L Microbiology Date/Time Source Procedure Growth Status 06/16/17 21:15 Blood Blood Culture - Preliminary NO GROWTH AFTER 24 HOURS Resulted 06/16/17 21:00 Blood Blood Culture - Preliminary NO GROWTH AFTER 24 HOURS Resulted 06/17/17 00:45 Buttock Right Gram Stain - Final Resulted 06/17/17 00:45 Buttock Right Wound Culture - Preliminary Resulted VANE GUTIÉRREZ Jun 18, 2017 19:59
[2017-06-18 20:00] VITALS: BP 136/82
--- NOTE | 2017-06-18 20:35 | Infectious Diseases Prog Note ---
Assessment/Plan Assessment/Plan Abx: IV Vanco/ Cefepime 06/17 IV Ceftriaxone 06/17 Zosyn x1 06/16 Levaquin x1 06/16 Assesment: AMS- has baseline end-stage dementia Low grade fever, resolved Leukocytosis, mild- resolved -u/a neg Pulmonary edema, ?possible PNA -CXR 06/18: Mild CHF suspected. Pacemaker again noted.No change. -CXR 06/16: Interstitial edema/CHF suspected Elevated ESR HTN, Dm2, multiple falls, subacute/chronic left convexity SDH, R femoral neck fracture s/p R hip hemiarthroplasthy, End-stage Alzheimer;s Dementia, CAD, s/p PPM, HLD, MDD/Anxiety Disorder, Colon CA s/p resection Plan: -Continue IV Ceftriaxone #2 (abx #4/) -(will hold on azithromcyin given prolonged QTC) -f/u cx -Monitor CBC/BMP, temperatures -aspiration precautions. Thank you for this consultation. Will continue to follow along with you. Discussed with RN. Subjective Allergies: Coded Allergies: No Known Allergies (Verified , 01/23/07) Subjective afebrile in 48hrs no leukocytosis CXR mild chf bcx NTD Objective Vital Signs Last 24 Hour Vital Signs Date Time Temp Pulse Resp B/P (MAP) Pulse Ox O2 Delivery O2 Flow Rate FiO2 06/18/17 19:19 64 18 Room Air 21 06/18/17 16:00 99 06/18/17 15:22 96.4 61 20 133/73 99 Room Air 06/18/17 12:00 62 06/18/17 11:29 97.1 62 20 132/72 98 Room Air 06/18/17 08:30 64 142/75 06/18/17 08:21 97.0 64 20 142/75 97 Room Air 06/18/17 08:00 68 06/18/17 07:29 70 18 Room Air 21 06/18/17 04:00 72 06/18/17 04:00 96.9 69 20 134/70 93 Room Air 06/18/17 00:00 98.1 75 23 127/64 95 Room Air 06/17/17 22:00 108/67 Height (Feet): 6 Height (Inches): 4.00 Weight (Pounds): 242 Objective General Appearance: WD/WN Lines, tubes and drains: peripheral HEENT: normocephalic, atraumatic Neck: non-tender, normal alignment Respiratory/Chest: chest wall non-tender, lungs clear, decreased breath sounds Breasts: no masses Cardiovascular/Chest: normal peripheral pulses Abdomen: normal bowel sounds, non tender Genitourinary/Rectal: normal genital exam, normal rectal exam Extremities: normal range of motion Microbiology Date/Time Source Procedure Growth Status 06/16/17 21:15 Blood Blood Culture - Preliminary NO GROWTH AFTER 24 HOURS Resulted 06/16/17 21:00 Blood Blood Culture - Preliminary NO GROWTH AFTER 24 HOURS Resulted 06/17/17 00:45 Buttock Right Gram Stain - Final Resulted 06/17/17 00:45 Buttock Right Wound Culture - Preliminary Resulted Laboratory Tests Test 06/18/17 07:25 White Blood Count 7.8 K/UL (4.8-10.8) Red Blood Count 3.76 M/UL (4.70-6.10) L Hemoglobin 11.9 G/DL (14.2-18.0) L Hematocrit 35.1 % (42.0-52.0) L Mean Corpuscular Volume 93 FL (80-99) Mean Corpuscular Hemoglobin 31.6 PG (27.0-31.0) H Mean Corpuscular Hemoglobin Concent 33.8 G/DL (32.0-36.0) Red Cell Distribution Width 12.8 % (11.6-14.8) Platelet Count 242 K/UL (150-450) Mean Platelet Volume 7.0 FL (6.5-10.1) Neutrophils (%) (Auto) 76.2 % (45.0-75.0) H Lymphocytes (%) (Auto) 13.0 % (20.0-45.0) L Monocytes (%) (Auto) 6.2 % (1.0-10.0) Eosinophils (%) (Auto) 3.1 % (0.0-3.0) H Basophils (%) (Auto) 1.5 % (0.0-2.0) Sodium Level 131 mEQ/L (135-145) L Potassium Level 3.7 mEQ/L (3.4-4.9) Chloride Level 93 mEQ/L (98-107) L Carbon Dioxide Level 28 mEQ/L (20-30) Anion Gap 10 (5-15) Blood Urea Nitrogen 11 mg/dL (7-23) Creatinine 0.7 mg/dL (0.7-1.2) Estimat Glomerular Filtration Rate mL/min (>60) Glucose Level 116 mg/dL (74-106) H Calcium Level 9.1 mg/dL (8.6-10.2) Total Bilirubin 0.3 mg/dL (0.0-1.2) Aspartate Amino Transf (AST/SGOT) 11 U/L (5-40) Alanine Aminotransferase (ALT/SGPT) 6 U/L (3-41) Alkaline Phosphatase 100 U/L (40-129) Pro-B-Type Natriuretic Peptide 759 pg/mL (0-450) H Total Protein 6.2 g/dL (6.6-8.7) L Albumin 3.0 g/dL (3.5-5.2) L Globulin 3.2 g/dL Albumin/Globulin Ratio 0.9 (1.0-2.7) L Current Medications Medications (Trade) Dose Ordered Sig/Heron Route PRN Reason Start Time Stop Time Status Last Admin Dose Admin Acetaminophen (Tylenol) 650 mg Q4H PRN ORAL fever 06/16/17 23:15 07/16/17 23:14 Albuterol/ Ipratropium (DuoNeb 0.5-3(2.5)mg/3ml) 3 ml Q4H PRN HHN Shortness of Breath 06/16/17 23:15 06/21/17 23:14 Atenolol (Tenormin) 25 mg DAILY ORAL 06/17/17 09:00 07/17/17 08:59 06/18/17 08:30 Ceftriaxone Sodium 1 gm/ Dextrose 55 ml @ 110 mls/hr Q24H IVPB 06/18/17 06:00 06/25/17 05:59 06/18/17 05:51 Dextrose (Dextrose 50%) STAT PRN IV Hypoglycemia 06/17/17 05:45 07/17/17 05:44 Escitalopram Oxalate (Lexapro) 10 mg DAILY ORAL 06/17/17 09:00 07/17/17 08:59 06/18/17 08:29 Heparin Sodium (Porcine) (Heparin 5000 units/ml) 5,000 units EVERY 12 HOURS SUBQ 06/17/17 09:00 07/17/17 08:59 06/18/17 08:32 Insulin Aspart (NovoLOG) BEFORE MEALS AND HS SUBQ 06/17/17 06:30 07/17/17 06:29 06/18/17 12:16 Morphine Sulfate (Morphine Sulfate) 2 mg Q4H PRN IVP Moderate Pain (Pain Scale 4-6) 06/16/17 23:15 06/23/17 23:14 Ondansetron HCl (Zofran) 4 mg Q6H PRN IVP Nausea & Vomiting 06/16/17 23:15 07/16/17 23:14 Phenazopyridine HCl (Pyridium) 100 mg DAILY PRN ORAL dysuria 06/16/17 23:15 07/16/17 23:14 Polyethylene Glycol (Miralax) 17 gm DAILYPRN PRN ORAL Constipation 06/16/17 23:15 07/16/17 23:14 Temazepam (Restoril) 15 mg HSPRN PRN ORAL Insomnia 06/16/17 23:15 06/23/17 23:14 Brianna Bose M.D. Jun 18, 2017 20:35
[2017-06-19] VITALS (7 sets, daily range): BP systolic 132–161; BP diastolic 76–99
[2017-06-19] MEDS: cefTRIAXone 1 GM in D5W 55 ML IVPB SCH (05:55)
[2017-06-19] MEDS: NovoLOG Insulin Flexpen SUBQ SCH ×4 (06:47→20:46)
--- NOTE | 2017-06-19 09:23 | Infectious Diseases Prog Note ---
Assessment/Plan Assessment/Plan Abx: IV Vanco/ Cefepime 06/17 IV Ceftriaxone 06/17- Zosyn x1 06/16 Levaquin x1 06/16 Assesment: AMS- has baseline end-stage dementia Low grade fever, resolved Leukocytosis, mild- resolved -u/a neg Pulmonary edema, ?possible PNA -CXR 06/18: Mild CHF suspected. Pacemaker again noted.No change. -CXR 06/16: Interstitial edema/CHF suspected Elevated ESR HTN, Dm2, multiple falls, subacute/chronic left convexity SDH, R femoral neck fracture s/p R hip hemiarthroplasthy, End-stage Alzheimer;s Dementia, CAD, s/p PPM, HLD, MDD/Anxiety Disorder, Colon CA s/p resection Plan: -Continue IV Ceftriaxone #3 (abx #4/5); if discharge, can complete course with PO Cefpodoxime or Cefdinir -(azithromcyin held given prolonged QTC) -f/u cx -Monitor CBC/BMP, temperatures -aspiration precautions. Thank you for this consultation. Will continue to follow along with you. Discussed with RN. Subjective Allergies: Coded Allergies: No Known Allergies (Verified , 01/23/07) Subjective afebrile in >48hrs no leukocytosis CXR mild chf bcx NTD Objective Vital Signs Last 24 Hour Vital Signs Date Time Temp Pulse Resp B/P (MAP) Pulse Ox O2 Delivery O2 Flow Rate FiO2 06/19/17 08:07 97.7 76 20 132/79 95 Room Air 06/19/17 04:23 97.9 78 20 136/82 95 Room Air 06/19/17 04:00 94 06/19/17 01:24 146/78 06/19/17 00:19 97.5 69 20 161/81 94 06/19/17 00:00 72 06/18/17 20:00 68 06/18/17 20:00 97.5 63 20 136/82 95 06/18/17 19:19 64 18 Room Air 21 06/18/17 16:00 99 06/18/17 15:22 96.4 61 20 133/73 99 Room Air 06/18/17 12:00 62 06/18/17 11:29 97.1 62 20 132/72 98 Room Air Height (Feet): 6 Height (Inches): 4.00 Weight (Pounds): 242 Objective General Appearance: WD/WN Lines, tubes and drains: peripheral HEENT: normocephalic, atraumatic Neck: non-tender, normal alignment Respiratory/Chest: chest wall non-tender, lungs clear, decreased breath sounds Cardiovascular/Chest: normal peripheral pulses Abdomen: normal bowel sounds, non tender Extremities: normal range of motion Microbiology Date/Time Source Procedure Growth Status 06/16/17 21:15 Blood Blood Culture - Preliminary NO GROWTH AFTER 48 HOURS Resulted 06/16/17 21:00 Blood Blood Culture - Preliminary NO GROWTH AFTER 48 HOURS Resulted 06/17/17 00:45 Buttock Right Gram Stain - Final Resulted 06/17/17 00:45 Buttock Right Wound Culture - Preliminary Resulted Current Medications Medications (Trade) Dose Ordered Sig/Heron Route PRN Reason Start Time Stop Time Status Last Admin Dose Admin Acetaminophen (Tylenol) 650 mg Q4H PRN ORAL fever 06/16/17 23:15 07/16/17 23:14 Albuterol/ Ipratropium (DuoNeb 0.5-3(2.5)mg/3ml) 3 ml Q4H PRN HHN Shortness of Breath 06/16/17 23:15 06/21/17 23:14 Atenolol (Tenormin) 25 mg DAILY ORAL 06/17/17 09:00 07/17/17 08:59 06/18/17 08:30 Ceftriaxone Sodium 1 gm/ Dextrose 55 ml @ 110 mls/hr Q24H IVPB 06/18/17 06:00 06/25/17 05:59 06/19/17 05:55 Dextrose (Dextrose 50%) STAT PRN IV Hypoglycemia 06/17/17 05:45 07/17/17 05:44 Escitalopram Oxalate (Lexapro) 10 mg DAILY ORAL 06/17/17 09:00 07/17/17 08:59 06/18/17 08:29 Heparin Sodium (Porcine) (Heparin 5000 units/ml) 5,000 units EVERY 12 HOURS SUBQ 06/17/17 09:00 07/17/17 08:59 06/18/17 21:38 Insulin Aspart (NovoLOG) BEFORE MEALS AND HS SUBQ 06/17/17 06:30 07/17/17 06:29 06/19/17 06:47 Morphine Sulfate (Morphine Sulfate) 2 mg Q4H PRN IVP Moderate Pain (Pain Scale 4-6) 06/16/17 23:15 06/23/17 23:14 Ondansetron HCl (Zofran) 4 mg Q6H PRN IVP Nausea & Vomiting 06/16/17 23:15 07/16/17 23:14 Phenazopyridine HCl (Pyridium) 100 mg DAILY PRN ORAL dysuria 06/16/17 23:15 07/16/17 23:14 Polyethylene Glycol (Miralax) 17 gm DAILYPRN PRN ORAL Constipation 06/16/17 23:15 07/16/17 23:14 Temazepam (Restoril) 15 mg HSPRN PRN ORAL Insomnia 06/16/17 23:15 06/23/17 23:14 Brianna Bose M.D. Jun 19, 2017 09:23
[2017-06-19] MEDS: Atenolol 25mg tab ORAL SCH (09:57)
[2017-06-19] MEDS: Heparin 5000 units/ml inj SUBQ SCH ×2 (10:02→20:48)
[2017-06-19 12:51] LABS: OTHERS PATHOLOGIST COMMENT
--- NOTE | 2017-06-19 13:06 | Pulmonology Progress Note ---
Assessment/Plan Problems: (1) Encephalopathy acute (2) Sepsis (3) Pneumonia (4) Diabetes mellitus (5) Hypertension (6) Pacemaker Assessment/Plan pace maker was interrogated, it is functioning properly improving afebrile cardiology note appreciated check sputum respiratory treatment All medications and treatment were reviewed. med/surg dc planning for am Subjective ROS Limited/Unobtainable: No Constitutional: Reports: no symptoms HEENT: Repors: no symptoms Respiratory: Reports: no symptoms Allergies: Coded Allergies: No Known Allergies (Verified , 01/23/07) Objective Last 24 Hour Vital Signs Date Time Temp Pulse Resp B/P (MAP) Pulse Ox O2 Delivery O2 Flow Rate FiO2 06/19/17 11:47 97.1 76 20 133/76 97 Room Air 06/19/17 09:57 76 132/79 06/19/17 08:10 78 18 Room Air 21 06/19/17 08:07 97.7 76 20 132/79 95 Room Air 06/19/17 08:00 82 06/19/17 04:23 97.9 78 20 136/82 95 Room Air 06/19/17 04:00 94 06/19/17 01:24 146/78 06/19/17 00:19 97.5 69 20 161/81 94 06/19/17 00:00 72 06/18/17 20:00 68 06/18/17 20:00 97.5 63 20 136/82 95 06/18/17 19:19 64 18 Room Air 21 06/18/17 16:00 99 06/18/17 15:22 96.4 61 20 133/73 99 Room Air Intake and Output 06/19/17 06/20/17 19:00 07:00 Intake Total 200 ml Balance 200 ml Intake Oral 200 ml General Appearance: WD/WN HEENT: normocephalic, atraumatic Cardiovascular: normal peripheral pulses, regular rhythm Abdomen: soft, non tender Genitourinary: normal external genitalia Skin: no lesions Microbiology Date/Time Source Procedure Growth Status 06/16/17 21:15 Blood Blood Culture - Preliminary NO GROWTH AFTER 48 HOURS Resulted 06/16/17 21:00 Blood Blood Culture - Preliminary NO GROWTH AFTER 48 HOURS Resulted 06/17/17 00:45 Buttock Right Gram Stain - Final Resulted 06/17/17 00:45 Wound Culture - Preliminary Providencia Stuartii Gram Negative Bacillus 2 Resulted Current Medications Medications (Trade) Dose Ordered Sig/Heron Route PRN Reason Start Time Stop Time Status Last Admin Dose Admin Acetaminophen (Tylenol) 650 mg Q4H PRN ORAL fever 06/16/17 23:15 07/16/17 23:14 Albuterol/ Ipratropium (DuoNeb 0.5-3(2.5)mg/3ml) 3 ml Q4H PRN HHN Shortness of Breath 06/16/17 23:15 06/21/17 23:14 Atenolol (Tenormin) 25 mg DAILY ORAL 06/17/17 09:00 07/17/17 08:59 06/19/17 09:57 Ceftriaxone Sodium 1 gm/ Dextrose 55 ml @ 110 mls/hr Q24H IVPB 06/18/17 06:00 06/25/17 05:59 06/19/17 05:55 Dextrose (Dextrose 50%) STAT PRN IV Hypoglycemia 06/17/17 05:45 07/17/17 05:44 Escitalopram Oxalate (Lexapro) 10 mg DAILY ORAL 06/17/17 09:00 07/17/17 08:59 06/19/17 09:57 Heparin Sodium (Porcine) (Heparin 5000 units/ml) 5,000 units EVERY 12 HOURS SUBQ 06/17/17 09:00 07/17/17 08:59 06/19/17 10:02 Insulin Aspart (NovoLOG) BEFORE MEALS AND HS SUBQ 06/17/17 06:30 07/17/17 06:29 06/19/17 11:44 Morphine Sulfate (Morphine Sulfate) 2 mg Q4H PRN IVP Moderate Pain (Pain Scale 4-6) 06/16/17 23:15 06/23/17 23:14 Ondansetron HCl (Zofran) 4 mg Q6H PRN IVP Nausea & Vomiting 06/16/17 23:15 07/16/17 23:14 Phenazopyridine HCl (Pyridium) 100 mg DAILY PRN ORAL dysuria 06/16/17 23:15 07/16/17 23:14 Polyethylene Glycol (Miralax) 17 gm DAILYPRN PRN ORAL Constipation 06/16/17 23:15 07/16/17 23:14 Temazepam (Restoril) 15 mg HSPRN PRN ORAL Insomnia 06/16/17 23:15 06/23/17 23:14 ANABELL CONTRERAS Jun 19, 2017 13:06
--- NOTE | 2017-06-19 20:03 | Cardiology Progress Note ---
Assessment/Plan Assessment/Plan 1. Altered mentation. 2. History of permanent pacemaker implantation. 3. Subacute chronic left convexity subdural hematoma 4. History of permanent pacemaker implantation. 5. Status post fall. not seem to be pacer dependent pacer interrogated fucntion normaly felt to have had artifact trop neg pro bnp not sig elevated dc tele to med surg Subjective ROS Limited/Unobtainable: Yes Objective Last 24 Hour Vital Signs Date Time Temp Pulse Resp B/P (MAP) Pulse Ox O2 Delivery O2 Flow Rate FiO2 06/19/17 19:43 72 20 Room Air 21 06/19/17 16:00 70 06/19/17 15:50 97.3 72 20 144/85 96 Room Air 06/19/17 12:00 71 06/19/17 11:47 97.1 76 20 133/76 97 Room Air 06/19/17 09:57 76 132/79 06/19/17 08:10 78 18 Room Air 21 06/19/17 08:07 97.7 76 20 132/79 95 Room Air 06/19/17 08:00 82 06/19/17 04:23 97.9 78 20 136/82 95 Room Air 06/19/17 04:00 94 06/19/17 01:24 146/78 06/19/17 00:19 97.5 69 20 161/81 94 06/19/17 00:00 72 General Appearance: no apparent distress, alert Cardiovascular: normal rate, regular rhythm Respiratory/Chest: lungs clear, normal breath sounds Abdomen: normal bowel sounds, non tender, soft Extremities: no swelling Intake and Output 06/19/17 06/20/17 19:00 07:00 Intake Total 470 ml Output Total 250 ml Balance 220 ml Intake Oral 470 ml Output Urine Total 250 ml Microbiology Date/Time Source Procedure Growth Status 06/16/17 21:15 Blood Blood Culture - Preliminary NO GROWTH AFTER 48 HOURS Resulted 06/16/17 21:00 Blood Blood Culture - Preliminary NO GROWTH AFTER 48 HOURS Resulted 06/17/17 00:45 Buttock Right Gram Stain - Final Resulted 06/17/17 00:45 Wound Culture - Preliminary Providencia Stuartii Gram Negative Bacillus 2 Resulted VANE GUTIÉRREZ Jun 19, 2017 20:03
[2017-06-19] MEDS ORDERED: Morphine Sulfate 2mg/ml Inj IVP PRN (22:00)
[2017-06-19] MEDS ORDERED: Albuterol/Ipratropium 3ml neb HHN PRN (22:00)
[2017-06-20] VITALS: BP 152/91
[2017-06-20 03:52] VITALS: BP 130/84
[2017-06-20] MEDS ORDERED: cefTRIAXone 1 GM in D5W 55 ML IVPB SCH (06:00)
[2017-06-20] MEDS: NovoLOG Insulin Flexpen SUBQ SCH ×4 (06:36→22:06)
[2017-06-20 08:23] VITALS: BP 139/82
[2017-06-20] MEDS: Atenolol 25mg tab ORAL SCH (08:56)
[2017-06-20] MEDS: Heparin 5000 units/ml inj SUBQ SCH ×2 (08:57→22:07)
[2017-06-20 11:45] VITALS: BP 159/78
[2017-06-20] MEDS ORDERED: Tubing IV Secondary IV ONE (15:11)
[2017-06-20] MEDS ORDERED: NS 275ml ONE (15:11)
[2017-06-20 15:45] VITALS: BP 157/96
--- NOTE | 2017-06-20 18:39 | Pulmonology Progress Note ---
Assessment/Plan Problems: (1) Encephalopathy acute (2) Sepsis (3) Pneumonia (4) Diabetes mellitus (5) Hypertension (6) Pacemaker Assessment/Plan pace maker was interrogated, it is functioning properly improving afebrile cardiology note appreciated check sputum respiratory treatment All medications and treatment were reviewed. med/surg dc planning for am Subjective ROS Limited/Unobtainable: No Constitutional: Reports: fever, chills, fatigue Respiratory: Reports: productive cough, sputum, shortness of breath, dyspnea at rest, wheezing, pleuritic pain Cardiovascular: Reports: chest pain Neurologic: Reports: weakness, confusion Allergies: Coded Allergies: No Known Allergies (Verified , 01/23/07) Objective Last 24 Hour Vital Signs Date Time Temp Pulse Resp B/P (MAP) Pulse Ox O2 Delivery O2 Flow Rate FiO2 06/20/17 15:45 97.5 77 20 157/96 97 Room Air 06/20/17 11:45 97.6 73 21 159/78 96 Room Air 06/20/17 08:56 75 139/82 06/20/17 08:23 97.9 75 20 139/82 95 Room Air 06/20/17 06:40 75 18 Room Air 21 06/20/17 03:52 97.3 69 18 130/84 94 Room Air 06/20/17 00:00 97.9 70 20 152/91 96 Room Air 06/19/17 20:44 96.8 70 16 152/99 96 Room Air 06/19/17 19:43 72 20 Room Air 21 Intake and Output 06/20/17 06/21/17 19:00 07:00 Intake Total 360 ml Output Total 300 ml Balance 60 ml Intake Oral 360 ml Output Urine Total 300 ml General Appearance: no acute distress HEENT: normocephalic, atraumatic, PERRL Respiratory/Chest: chest wall tender, decreased breath sounds, accessory muscle use, crackles/rales, rhonchi Cardiovascular: normal peripheral pulses, normal rate, regular rhythm, no JVD Abdomen: normal bowel sounds, soft, non tender, no organomegaly, non distended Genitourinary: normal external genitalia Extremities: no cyanosis Skin: no rash Neurologic/Psychiatric: brake adjuster II-XII grossly normal, disoriented Current Medications Medications (Trade) Dose Ordered Sig/Heron Route PRN Reason Start Time Stop Time Status Last Admin Dose Admin Acetaminophen (Tylenol) 650 mg Q4H PRN ORAL fever 06/19/17 22:00 07/16/17 21:59 Albuterol/ Ipratropium (DuoNeb 0.5-3(2.5)mg/3ml) 3 ml Q4H PRN HHN Shortness of Breath 06/19/17 22:00 06/21/17 21:59 Atenolol (Tenormin) 25 mg DAILY ORAL 06/20/17 09:00 07/17/17 08:59 06/20/17 08:56 Ceftriaxone Sodium 1 gm/ Dextrose 55 ml @ 110 mls/hr Q24H IVPB 06/20/17 06:00 06/25/17 05:59 06/20/17 06:32 Clonidine HCl (Catapres) 0.1 mg Q6H PRN ORAL For High Blood Pressure 06/20/17 17:15 07/20/17 17:14 Dextrose (Dextrose 50%) STAT PRN IV Hypoglycemia 06/19/17 22:00 07/19/17 21:59 Escitalopram Oxalate (Lexapro) 10 mg DAILY ORAL 06/20/17 09:00 07/17/17 08:59 06/20/17 08:56 Heparin Sodium (Porcine) (Heparin 5000 units/ml) 5,000 units EVERY 12 HOURS SUBQ 06/20/17 09:00 07/17/17 08:59 06/20/17 08:57 Insulin Aspart (NovoLOG) BEFORE MEALS AND HS SUBQ 06/20/17 06:30 07/17/17 06:29 06/20/17 16:30 Morphine Sulfate (Morphine Sulfate) 2 mg Q4H PRN IVP Moderate Pain (Pain Scale 4-6) 06/19/17 22:00 06/23/17 21:59 Ondansetron HCl (Zofran) 4 mg Q6H PRN IVP Nausea & Vomiting 06/19/17 22:00 07/16/17 21:59 Phenazopyridine HCl (Pyridium) 100 mg DAILYPRN PRN ORAL dysuria 06/20/17 09:00 07/20/17 08:59 Polyethylene Glycol (Miralax) 17 gm DAILYPRN PRN ORAL Constipation 06/19/17 22:00 07/16/17 21:59 Temazepam (Restoril) 15 mg HSPRN PRN ORAL Insomnia 06/19/17 22:00 06/23/17 21:59 ANABELL CONTRERAS Jun 20, 2017 18:39
[2017-06-20 20:00] VITALS: BP 146/94
--- NOTE | 2017-06-20 22:26 | Infectious Diseases Prog Note ---
Assessment/Plan Assessment/Plan Abx: IV Vanco/ Cefepime 06/17 IV Ceftriaxone 06/17- Zosyn x1 06/16 Levaquin x1 06/16 Assesment: AMS- has baseline end-stage dementia Low grade fever, resolved Leukocytosis, mild- resolved -u/a neg -woudn cx buttock: +4 P. stuarti (S. Ceftriaxone) Pulmonary edema, ?possible PNA -CXR 06/18: Mild CHF suspected. Pacemaker again noted.No change. -CXR 06/16: Interstitial edema/CHF suspected Elevated ESR HTN, Dm2, multiple falls, subacute/chronic left convexity SDH, R femoral neck fracture s/p R hip hemiarthroplasthy, End-stage Alzheimer;s Dementia, CAD, s/p PPM, HLD, MDD/Anxiety Disorder, Colon CA s/p resection Plan: -Last day of IV Ceftriaxone #4 (abx #5/5) for presumed PNA -f/u cx -Monitor CBC/BMP, temperatures -aspiration precautions. Thank you for this consultation. Will continue to follow along with you. Discussed with RN. Subjective Allergies: Coded Allergies: No Known Allergies (Verified , 01/23/07) Subjective afebrile in >72hrs no leukocytosis CXR mild chf bcx NTD Objective Vital Signs Last 24 Hour Vital Signs Date Time Temp Pulse Resp B/P (MAP) Pulse Ox O2 Delivery O2 Flow Rate FiO2 06/20/17 20:19 68 18 Room Air 21 06/20/17 20:00 97.6 71 21 146/94 94 Room Air 06/20/17 15:45 97.5 77 20 157/96 97 Room Air 06/20/17 11:45 97.6 73 21 159/78 96 Room Air 06/20/17 08:56 75 139/82 06/20/17 08:23 97.9 75 20 139/82 95 Room Air 06/20/17 06:40 75 18 Room Air 21 06/20/17 03:52 97.3 69 18 130/84 94 Room Air 06/20/17 00:00 97.9 70 20 152/91 96 Room Air Height (Feet): 6 Height (Inches): 4.00 Weight (Pounds): 242 Objective General Appearance: WD/WN Lines, tubes and drains: peripheral HEENT: normocephalic, atraumatic Neck: non-tender, normal alignment Respiratory/Chest: chest wall non-tender, lungs clear, decreased breath sounds Cardiovascular/Chest: normal peripheral pulses Abdomen: normal bowel sounds, non tender Extremities: normal range of motion Current Medications Medications (Trade) Dose Ordered Sig/Heron Route PRN Reason Start Time Stop Time Status Last Admin Dose Admin Acetaminophen (Tylenol) 650 mg Q4H PRN ORAL fever 06/19/17 22:00 07/16/17 21:59 Albuterol/ Ipratropium (DuoNeb 0.5-3(2.5)mg/3ml) 3 ml Q4H PRN HHN Shortness of Breath 06/19/17 22:00 06/21/17 21:59 Atenolol (Tenormin) 25 mg DAILY ORAL 06/20/17 09:00 07/17/17 08:59 06/20/17 08:56 Ceftriaxone Sodium 1 gm/ Dextrose 55 ml @ 110 mls/hr Q24H IVPB 06/20/17 06:00 06/25/17 05:59 06/20/17 06:32 Clonidine HCl (Catapres) 0.1 mg Q6H PRN ORAL For High Blood Pressure 06/20/17 17:15 07/20/17 17:14 Dextrose (Dextrose 50%) STAT PRN IV Hypoglycemia 06/19/17 22:00 07/19/17 21:59 Escitalopram Oxalate (Lexapro) 10 mg DAILY ORAL 06/20/17 09:00 07/17/17 08:59 06/20/17 08:56 Heparin Sodium (Porcine) (Heparin 5000 units/ml) 5,000 units EVERY 12 HOURS SUBQ 06/20/17 09:00 07/17/17 08:59 06/20/17 22:07 Insulin Aspart (NovoLOG) BEFORE MEALS AND HS SUBQ 06/20/17 06:30 07/17/17 06:29 06/20/17 22:06 Morphine Sulfate (Morphine Sulfate) 2 mg Q4H PRN IVP Moderate Pain (Pain Scale 4-6) 06/19/17 22:00 06/23/17 21:59 Ondansetron HCl (Zofran) 4 mg Q6H PRN IVP Nausea & Vomiting 06/19/17 22:00 07/16/17 21:59 06/20/17 19:06 Phenazopyridine HCl (Pyridium) 100 mg DAILYPRN PRN ORAL dysuria 06/20/17 09:00 07/20/17 08:59 Polyethylene Glycol (Miralax) 17 gm DAILYPRN PRN ORAL Constipation 06/19/17 22:00 07/16/17 21:59 Temazepam (Restoril) 15 mg HSPRN PRN ORAL Insomnia 06/19/17 22:00 06/23/17 21:59 Brianna Bose M.D. Jun 20, 2017 22:26
[2017-06-21] VITALS (7 sets, daily range): BP systolic 112–168; BP diastolic 53–102
[2017-06-21] MEDS: NovoLOG Insulin Flexpen SUBQ SCH ×4 (06:55→20:41)
[2017-06-21] MEDS: Miralax 17gm pkt ORAL PRN ×2 (06:58→16:59)
[2017-06-21 07:27] LABS: MEAN CORPUSCULAR HEMOGLOBIN 30.5 PG (27.0-31.0); MEAN CORPUSCULAR HGB CONC 32.8 G/DL (32.0-36.0); MEAN CORPUSCULAR VOLUME 93 FL (80-99); MEAN PLATELET VOLUME 6.6 FL (6.5-10.1); PLATELET COUNT 377 K/UL (150-450); RED BLOOD COUNT 4.79 M/UL (4.70-6.10); RED CELL DISTRIBUTION WIDTH 12.9 % (11.6-14.8); WHITE BLOOD COUNT 12.6 K/UL (4.8-10.8)
[2017-06-21 07:39] LABS: ALANINE AMINOTRANSFERASE 7 U/L (3-41); ALBUMIN/GLOBULIN RATIO 1.1 (1.0-2.7); ANION GAP 16 (5-15); ASPARTATE AMINO TRANSFERASE 13 U/L (5-40); CALCIUM 9.8 mg/dL (8.6-10.2); CARBON DIOXIDE 28 mEQ/L (20-30); CHLORIDE 91 mEQ/L (98-107); CREATININE 0.8 mg/dL (0.7-1.2); HEMOLYSIS 1; MAGNESIUM 1.9 mg/dL (1.7-2.5); PHOSPHORUS 3.3 mg/dL (2.5-4.8); SODIUM 135 mEQ/L (135-145)
--- NOTE | 2017-06-21 08:27 | Infectious Diseases Prog Note ---
Assessment/Plan Assessment/Plan Abx: IV Vanco/ Cefepime 10/3 IV Ceftriaxone 10/3-06/20 Zosyn x1 10 Levaquin x1 06/16 Assesment: AMS- has baseline end-stage dementia Low grade fever, resolved Leukocytosis, mild- previously resolved, now back to 12 -u/a neg -woudn cx buttock: +4 P. stuarti (S. Ceftriaxone) Nausea/vomiting- r/o ileus, obstruction Pulmonary edema, ?possible PNA -CXR 06/18: Mild CHF suspected. Pacemaker again noted.No change. -CXR 06/16: Interstitial edema/CHF suspected Elevated ESR HTN, Dm2, multiple falls, subacute/chronic left convexity SDH, R femoral neck fracture s/p R hip hemiarthroplasthy, End-stage Alzheimer;s Dementia, CAD, s/p PPM, HLD, MDD/Anxiety Disorder, Colon CA s/p resection Plan: -Continue to monitor off abx unless febrile, worsening leukocytosis, or new infiltrates on CXR; if thats the case, then will initiate Unasyn or PO augmentin to cover for aspiration given n/v -s/p 4d IV Ceftriaxone 06/20 -IV Vanco/ Cefepime / -Zosyn x1 06/16 -Levaquin x1 06/16 -CXR/KUB -f/u cx -Monitor CBC/BMP, temperatures; CBC am -aspiration precautions. Thank you for this consultation. Will continue to follow along with you. Discussed with RN. Subjective Allergies: Coded Allergies: No Known Allergies (Verified , 01/23/07) Subjective episodes of vomiting and hiccups per RN report afebrile mild leukocytosis to 12, otherwise stable Objective Vital Signs Last 24 Hour Vital Signs Date Time Temp Pulse Resp B/P (MAP) Pulse Ox O2 Delivery O2 Flow Rate FiO2 06/21/17 08:03 98.1 72 21 168/91 95 Room Air 06/21/17 04:00 97.3 76 20 149/88 93 Room Air 06/21/17 00:00 97.5 81 21 143/85 94 Room Air 06/20/17 20:19 68 18 Room Air 21 06/20/17 20:00 97.6 71 21 146/94 94 Room Air 06/20/17 15:45 97.5 77 20 157/96 97 Room Air 06/20/17 11:45 97.6 73 21 159/78 96 Room Air 06/20/17 08:56 75 139/82 06/20/17 08:23 97.9 75 20 139/82 95 Room Air Height (Feet): 6 Height (Inches): 4.00 Weight (Pounds): 242 Objective General Appearance: WD/WN Lines, tubes and drains: peripheral HEENT: normocephalic, atraumatic Neck: non-tender, normal alignment Respiratory/Chest: chest wall non-tender, lungs clear, decreased breath sounds Cardiovascular/Chest: normal peripheral pulses Abdomen: normal bowel sounds, non tender Extremities: normal range of motion Laboratory Tests Test 06/21/17 06:40 White Blood Count 12.6 K/UL (4.8-10.8) H Red Blood Count 4.79 M/UL (4.70-6.10) Hemoglobin 14.6 G/DL (14.2-18.0) Hematocrit 44.4 % (42.0-52.0) Mean Corpuscular Volume 93 FL (80-99) Mean Corpuscular Hemoglobin 30.5 PG (27.0-31.0) Mean Corpuscular Hemoglobin Concent 32.8 G/DL (32.0-36.0) Red Cell Distribution Width 12.9 % (11.6-14.8) Platelet Count 377 K/UL (150-450) Mean Platelet Volume 6.6 FL (6.5-10.1) Neutrophils (%) (Auto) % (45.0-75.0) Lymphocytes (%) (Auto) % (20.0-45.0) Monocytes (%) (Auto) % (1.0-10.0) Eosinophils (%) (Auto) % (0.0-3.0) Basophils (%) (Auto) % (0.0-2.0) Neutrophils % (Manual) Pending Lymphocytes % (Manual) Pending Platelet Estimate Pending Platelet Morphology Pending Sodium Level 135 mEQ/L (135-145) Potassium Level 4.0 mEQ/L (3.4-4.9) Chloride Level 91 mEQ/L (98-107) L Carbon Dioxide Level 28 mEQ/L (20-30) Anion Gap 16 (5-15) H Blood Urea Nitrogen 30 mg/dL (7-23) H Creatinine 0.8 mg/dL (0.7-1.2) Estimat Glomerular Filtration Rate mL/min (>60) Glucose Level 191 mg/dL (74-106) H Calcium Level 9.8 mg/dL (8.6-10.2) Phosphorus Level 3.3 mg/dL (2.5-4.8) Magnesium Level 1.9 mg/dL (1.7-2.5) Total Bilirubin 0.5 mg/dL (0.0-1.2) Aspartate Amino Transf (AST/SGOT) 13 U/L (5-40) Alanine Aminotransferase (ALT/SGPT) 7 U/L (3-41) Alkaline Phosphatase 95 U/L (40-129) Total Protein 7.0 g/dL (6.6-8.7) Albumin 3.7 g/dL (3.5-5.2) Globulin 3.3 g/dL Albumin/Globulin Ratio 1.1 (1.0-2.7) Current Medications Medications (Trade) Dose Ordered Sig/Heron Route PRN Reason Start Time Stop Time Status Last Admin Dose Admin Acetaminophen (Tylenol) 650 mg Q4H PRN ORAL fever 06/19/17 22:00 07/16/17 21:59 Albuterol/ Ipratropium (DuoNeb 0.5-3(2.5)mg/3ml) 3 ml Q4H PRN HHN Shortness of Breath 06/19/17 22:00 06/21/17 21:59 Atenolol (Tenormin) 25 mg DAILY ORAL 06/20/17 09:00 07/17/17 08:59 06/20/17 08:56 Clonidine HCl (Catapres) 0.1 mg Q6H PRN ORAL For High Blood Pressure 06/20/17 17:15 07/20/17 17:14 Dextrose (Dextrose 50%) STAT PRN IV Hypoglycemia 06/19/17 22:00 07/19/17 21:59 Escitalopram Oxalate (Lexapro) 10 mg DAILY ORAL 06/20/17 09:00 07/17/17 08:59 06/20/17 08:56 Heparin Sodium (Porcine) (Heparin 5000 units/ml) 5,000 units EVERY 12 HOURS SUBQ 06/20/17 09:00 07/17/17 08:59 06/20/17 22:07 Insulin Aspart (NovoLOG) BEFORE MEALS AND HS SUBQ 06/20/17 06:30 07/17/17 06:29 06/21/17 06:55 Morphine Sulfate (Morphine Sulfate) 2 mg Q4H PRN IVP Moderate Pain (Pain Scale 4-6) 06/19/17 22:00 06/23/17 21:59 Ondansetron HCl (Zofran) 4 mg Q6H PRN IVP Nausea & Vomiting 06/19/17 22:00 07/16/17 21:59 06/21/17 01:10 Phenazopyridine HCl (Pyridium) 100 mg DAILYPRN PRN ORAL dysuria 06/20/17 09:00 07/20/17 08:59 Polyethylene Glycol (Miralax) 17 gm DAILYPRN PRN ORAL Constipation 06/19/17 22:00 07/16/17 21:59 06/21/17 06:58 Temazepam (Restoril) 15 mg HSPRN PRN ORAL Insomnia 06/19/17 22:00 06/23/17 21:59 Brianna Bose M.D. Jun 21, 2017 08:27
[2017-06-21] MEDS: Atenolol 25mg tab ORAL SCH (09:02)
[2017-06-21] MEDS: Heparin 5000 units/ml inj SUBQ SCH ×2 (09:03→20:40)
[2017-06-21 10:27] LABS: BAND NEUTROPHILS % (MANUAL) 0 % (0-8); BASOPHILS % (MANUAL) 0 % (0-2); EOSINOPHILS % (MANUAL) 0 % (0-3); LYMPHOCYTES % (MANUAL) 3 % (20-45); NEUTROPHILS % (MANUAL) 93 % (45-75); PLATELET ESTIMATE ADEQUATE; PLATELET MORPHOLOGY NORMAL; TOTAL CELLS COUNTED 100
--- NOTE | 2017-06-21 11:13 | Diagnostic Imaging Report ---
Indication: None and vomiting Technique: Supine views of the abdomen Comparison: None Findings: Small bowel loops are gas-filled and distended. The stomach is also distended. Stool and gas are seen in the colon. There is a right hip hemiarthroplasty. Degenerative changes of the spine are noted. There is osteopenia. Impression: Gaseous distention of small bowel and the stomach. Although findings could represent ileus, obstructive process cannot be completely excluded. Clinical correlation recommended. Gas and stool in the colon.
--- NOTE | 2017-06-21 11:13 | Diagnostic Imaging Report ---
Indication: Cough Technique: XRAY CHEST 1 V Comparison: 06/18/17 Findings: Cardiomediastinal silhouette is stable. There is a left chest pacemaker. There is elevation of the left hemidiaphragm with bibasilar atelectasis. No new infiltrates are seen. Osseous structures are stable. Impression: No significant change from 06/18/17.
[2017-06-21] MEDS: Docusate 100mg cap ORAL SCH (18:58)
[2017-06-21] MEDS ORDERED: Miralax 17gm pkt ORAL SCH (21:00)
--- NOTE | 2017-06-21 23:17 | Pulmonology Progress Note ---
Assessment/Plan Problems: (1) Encephalopathy acute (2) Sepsis (3) Pneumonia (4) Diabetes mellitus (5) Hypertension (6) Pacemaker Assessment/Plan pace maker was interrogated, it is functioning properly improving afebrile cardiology note appreciated check sputum respiratory treatment All medications and treatment were reviewed. med/surg dc planning for am Subjective ROS Limited/Unobtainable: No Respiratory: Reports: shortness of breath, dyspnea at rest Cardiovascular: Reports: chest pain Neurologic: Reports: weakness Allergies: Coded Allergies: No Known Allergies (Verified , 01/23/07) Objective Last 24 Hour Vital Signs Date Time Temp Pulse Resp B/P (MAP) Pulse Ox O2 Delivery O2 Flow Rate FiO2 06/21/17 20:37 147/102 06/21/17 19:21 82 18 Room Air 21 06/21/17 19:17 98.2 84 20 147/102 92 Room Air 06/21/17 16:00 98.2 87 20 134/87 94 Room Air 06/21/17 12:00 97.5 89 20 112/53 82 Room Air 06/21/17 09:02 84 168/91 06/21/17 08:24 84 18 Room Air 21 06/21/17 08:03 98.1 72 21 168/91 95 Room Air 06/21/17 04:00 97.3 76 20 149/88 93 Room Air 06/21/17 00:00 97.5 81 21 143/85 94 Room Air Intake and Output 06/21/17 06/22/17 19:00 07:00 Intake Total 240 ml Output Total 400 ml Balance -160 ml Intake Oral 240 ml Output Urine Total 400 ml Objective General Appearance: no acute distress HEENT: normocephalic, atraumatic, PERRL Respiratory/Chest: chest wall tender, decreased breath sounds, accessory muscle use, crackles/rales, rhonchi Cardiovascular: normal peripheral pulses, normal rate, regular rhythm, no JVD Abdomen: normal bowel sounds, soft, non tender, no organomegaly, non distended Genitourinary: normal external genitalia Extremities: no cyanosis Skin: no rash 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, disoriented Laboratory Tests 06/21/17 06:40: White Blood Count 12.6H, Red Blood Count 4.79, Hemoglobin 14.6, Hematocrit 44.4 , Mean Corpuscular Volume 93, Mean Corpuscular Hemoglobin 30.5, Mean Corpuscular Hemoglobin Concent 32.8, Red Cell Distribution Width 12.9, Platelet Count 377, Mean Platelet Volume 6.6, Neutrophils (%) (Auto) , Lymphocytes (%) ( Auto) , Monocytes (%) (Auto) , Eosinophils (%) (Auto) , Basophils (%) (Auto) , Differential Total Cells Counted 100, Neutrophils % (Manual) 93H, Lymphocytes % (Manual) 3L, Monocytes % (Manual) 4, Eosinophils % (Manual) 0, Basophils % ( Manual) 0, Band Neutrophils 0, Platelet Estimate Adequate, Platelet Morphology Normal, Red Blood Cell Morphology Normal, Sodium Level 135, Potassium Level 4.0 , Chloride Level 91L, Carbon Dioxide Level 28, Anion Gap 16H, Blood Urea Nitrogen 30H, Creatinine 0.8, Estimat Glomerular Filtration Rate , Glucose Level 191H, Calcium Level 9.8, Phosphorus Level 3.3, Magnesium Level 1.9, Total Bilirubin 0.5, Aspartate Amino Transf (AST/SGOT) 13, Alanine Aminotransferase ( ALT/SGPT) 7, Alkaline Phosphatase 95, Total Protein 7.0, Albumin 3.7, Globulin 3.3, Albumin/Globulin Ratio 1.1 Current Medications Medications (Trade) Dose Ordered Sig/Heron Route PRN Reason Start Time Stop Time Status Last Admin Dose Admin Acetaminophen (Tylenol) 650 mg Q4H PRN ORAL fever 06/19/17 22:00 07/16/17 21:59 Atenolol (Tenormin) 25 mg DAILY ORAL 06/20/17 09:00 07/17/17 08:59 06/21/17 09:02 Clonidine HCl (Catapres) 0.1 mg Q6H PRN ORAL For High Blood Pressure 06/20/17 17:15 07/20/17 17:14 06/21/17 20:37 Dextrose (Dextrose 50%) STAT PRN IV Hypoglycemia 06/19/17 22:00 07/19/17 21:59 Docusate Sodium (Colace) 100 mg TWICE A DAY ORAL 06/21/17 18:30 07/21/17 18:29 06/21/17 18:58 Escitalopram Oxalate (Lexapro) 10 mg DAILY ORAL 06/20/17 09:00 07/17/17 08:59 06/21/17 09:02 Heparin Sodium (Porcine) (Heparin 5000 units/ml) 5,000 units EVERY 12 HOURS SUBQ 06/20/17 09:00 07/17/17 08:59 06/21/17 20:40 Insulin Aspart (NovoLOG) BEFORE MEALS AND HS SUBQ 06/20/17 06:30 07/17/17 06:29 06/21/17 20:41 Lactulose (Cephulac) 10 gm THREE TIMES A DAY ORAL 06/22/17 18:30 07/22/17 18:29 Morphine Sulfate (Morphine Sulfate) 2 mg Q4H PRN IVP Moderate Pain (Pain Scale 4-6) 06/19/17 22:00 06/23/17 21:59 Ondansetron HCl (Zofran) 4 mg Q6H PRN IVP Nausea & Vomiting 06/19/17 22:00 07/16/17 21:59 06/21/17 01:10 Phenazopyridine HCl (Pyridium) 100 mg DAILYPRN PRN ORAL dysuria 06/20/17 09:00 07/20/17 08:59 Polyethylene Glycol (Miralax) 17 gm BEDTIME ORAL 06/21/17 21:00 07/21/17 20:59 Polyethylene Glycol (Miralax) 17 gm DAILYPRN PRN ORAL Constipation 06/19/17 22:00 07/16/17 21:59 06/21/17 16:59 Temazepam (Restoril) 15 mg HSPRN PRN ORAL Insomnia 06/19/17 22:00 06/23/17 21:59 ANABELL CONTRERAS Jun 21, 2017 23:17
[2017-06-22 00:24] VITALS: BP 139/77
[2017-06-22 03:55] VITALS: BP 154/90
[2017-06-22] MEDS: NovoLOG Insulin Flexpen SUBQ SCH ×2 (06:40→12:37)
[2017-06-22 07:46] LABS: BASOPHILS % (AUTO) 0.6 % (0.0-2.0); EOSINOPHILS % (AUTO) 0.1 % (0.0-3.0); LYMPHOCYTES % (AUTO) 8.6 % (20.0-45.0); MEAN CORPUSCULAR HGB CONC 33.5 G/DL (32.0-36.0); MEAN CORPUSCULAR VOLUME 93 FL (80-99); MEAN PLATELET VOLUME 6.3 FL (6.5-10.1); MONOCYTES % (AUTO) 7.2 % (1.0-10.0); NEUTROPHILS % (AUTO) 83.3 % (45.0-75.0); PLATELET COUNT 388 K/UL (150-450); RED BLOOD COUNT 4.41 M/UL (4.70-6.10); RED CELL DISTRIBUTION WIDTH 12.7 % (11.6-14.8); WHITE BLOOD COUNT 10.8 K/UL (4.8-10.8)
[2017-06-22 08:00] VITALS: BP 148/72
[2017-06-22 08:37] LABS: ANION GAP 17 (5-15); CALCIUM 9.9 mg/dL (8.6-10.2); CARBON DIOXIDE 27 mEQ/L (20-30); CHLORIDE 91 mEQ/L (98-107); CREATININE 0.8 mg/dL (0.7-1.2); HEMOLYSIS 3; POTASSIUM 3.9 mEQ/L (3.4-4.9); SODIUM 135 mEQ/L (135-145)
[2017-06-22] MEDS: Docusate 100mg cap ORAL SCH (08:46)
[2017-06-22] MEDS: Atenolol 25mg tab ORAL SCH (08:47)
[2017-06-22] MEDS: Heparin 5000 units/ml inj SUBQ SCH (08:48)
--- NOTE | 2017-06-22 10:29 | Diagnostic Imaging Report ---
Indication: Chest pain Technique: XRAY CHEST 1 V Comparison: 06/21/17 Findings: Cardiomediastinal silhouette is stable. There is a left chest pacemaker. Atherosclerotic changes are seen. There is elevation of the left hemidiaphragm. Bibasilar atelectasis is noted. Osseous structures are stable. Impression: No significant change from 06/21/17.
[2017-06-22] MEDS ORDERED: TENORMIN100 MG ORAL (11:55)
[2017-06-22] MEDS ORDERED: DEXILANT30 MG ORAL (11:56)
[2017-06-22] MEDS ORDERED: OMEGA 3 1,0001 EACH PO (11:59)
[2017-06-22 12:00] VITALS: BP 145/80
[2017-06-22] MEDS ORDERED: FLOMAX0.4 MG ORAL (12:00)
[2017-06-22] MEDS ORDERED: ASPIRIN81 MG ORAL (12:00)
[2017-06-22] MEDS ORDERED: FERROUS SULFAT325 M2 ORAL (12:02)
[2017-06-22] MEDS ORDERED: MECLIZINE HCL MC (12:04)
[2017-06-22] MEDS ORDERED: MECLIZINE HCL25 MG ORAL (12:04)
[2017-06-22] MEDS ORDERED: DONEPEZIL HCL10 M2 ORAL (12:05)
[2017-06-22] MEDS ORDERED: LEXAPRO5 MG ORAL (12:06)
[2017-06-22] MEDS ORDERED: COLACE100 MG/10 ORAL (12:06)
[2017-06-22] MEDS ORDERED: GLIMEPIRIDE4 MG ORAL (12:08)
--- NOTE | 2017-06-22 12:53 | General Progress Note ---
Assessment/Plan Problem List: (1) Colon distention ICD Codes: K63.89 - Other specified diseases of intestine SNOMED: 272215137 (2) Pacemaker ICD Codes: Z95.0 - Presence of cardiac pacemaker SNOMED: 134688113, 046643093 (3) Hypertension ICD Codes: I10 - Essential (primary) hypertension SNOMED: 72776783 (4) Diabetes mellitus ICD Codes: E11.9 - Type 2 diabetes mellitus without complications SNOMED: 93179491 (5) UTI (urinary tract infection) ICD Codes: N39.0 - Urinary tract infection, site not specified SNOMED: 79213701 Assessment/Plan family refused CT no BM with colace and miralax try dulcolax today poor po intake fu labs push pos pending dc per nurses Subjective ROS Limited/Unobtainable: No Allergies: Coded Allergies: No Known Allergies (Verified , 01/23/07) Objective Last 24 Hour Vital Signs Date Time Temp Pulse Resp B/P (MAP) Pulse Ox O2 Delivery O2 Flow Rate FiO2 06/22/17 12:00 97.3 84 20 145/80 95 Room Air 06/22/17 10:02 84 18 Room Air 21 06/22/17 08:47 78 148/72 06/22/17 08:00 97.9 78 20 148/72 92 Room Air 06/22/17 03:55 98.1 82 18 154/90 95 Room Air 06/22/17 00:24 98.0 80 18 139/77 96 Room Air 06/21/17 20:37 147/102 06/21/17 19:40 137/84 06/21/17 19:21 82 18 Room Air 21 06/21/17 19:17 98.2 84 20 147/102 92 Room Air 06/21/17 16:00 98.2 87 20 134/87 94 Room Air Laboratory Tests 06/22/17 04:45: Sodium Level 135, Potassium Level 3.9, Chloride Level 91L, Carbon Dioxide Level 27, Anion Gap 17H, Blood Urea Nitrogen 34H, Creatinine 0.8, Estimat Glomerular Filtration Rate , Glucose Level 204H, Calcium Level 9.9 06/22/17 04:48: White Blood Count 10.8, Red Blood Count 4.41L, Hemoglobin 13.7L, Hematocrit 40.9L, Mean Corpuscular Volume 93, Mean Corpuscular Hemoglobin 31.0, Mean Corpuscular Hemoglobin Concent 33.5, Red Cell Distribution Width 12.7, Platelet Count 388, Mean Platelet Volume 6.3L, Neutrophils (%) (Auto) 83.3H, Lymphocytes (%) (Auto) 8.6L, Monocytes (%) (Auto) 7.2, Eosinophils (%) (Auto) 0.1, Basophils (%) (Auto) 0.6 Height (Feet): 6 Height (Inches): 4.00 Weight (Pounds): 242 General Appearance: lethargic EENT: normal ENT inspection Neck: supple Cardiovascular: normal rate Respiratory/Chest: decreased breath sounds Abdomen: soft, decreased bowel sounds, distended Extremities: non-tender SANDY ROWE Jun 22, 2017 12:53
[2017-06-22] MEDS ORDERED: Lactulose 10gm/15ml UDC ORAL SCH (18:30)
--- NOTE | 2017-06-22 22:59 | Pulmonology Progress Note ---
Assessment/Plan Problems: (1) Encephalopathy acute (2) Sepsis (3) Pneumonia (4) Diabetes mellitus (5) Hypertension (6) Pacemaker Assessment/Plan pace maker was interrogated, it is functioning properly improving afebrile cardiology note appreciated check sputum respiratory treatment All medications and treatment were reviewed. med/surg dc planning for am Subjective ROS Limited/Unobtainable: No Constitutional: Reports: fever, chills, fatigue Respiratory: Reports: productive cough, sputum, shortness of breath, dyspnea on exertion, wheezing Cardiovascular: Reports: chest pain Endocrine: Reports: abnormal blood sugar Allergies: Coded Allergies: No Known Allergies (Verified , 01/23/07) Objective Last 24 Hour Vital Signs Date Time Temp Pulse Resp B/P (MAP) Pulse Ox O2 Delivery O2 Flow Rate FiO2 06/22/17 12:00 97.3 84 20 145/80 95 Room Air 06/22/17 10:02 84 18 Room Air 21 06/22/17 08:47 78 148/72 06/22/17 08:00 97.9 78 20 148/72 92 Room Air 06/22/17 03:55 98.1 82 18 154/90 95 Room Air 06/22/17 00:24 98.0 80 18 139/77 96 Room Air Objective General Appearance: no acute distress HEENT: normocephalic, atraumatic, PERRL Respiratory/Chest: chest wall tender, decreased breath sounds, accessory muscle use, crackles/rales, rhonchi Cardiovascular: normal peripheral pulses, normal rate, regular rhythm, no JVD Abdomen: normal bowel sounds, soft, non tender, no organomegaly, non distended Genitourinary: normal external genitalia Extremities: no cyanosis Skin: no rash 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, disoriented Laboratory Tests 06/22/17 04:45: Sodium Level 135, Potassium Level 3.9, Chloride Level 91L, Carbon Dioxide Level 27, Anion Gap 17H, Blood Urea Nitrogen 34H, Creatinine 0.8, Estimat Glomerular Filtration Rate , Glucose Level 204H, Calcium Level 9.9 06/22/17 04:48: White Blood Count 10.8, Red Blood Count 4.41L, Hemoglobin 13.7L, Hematocrit 40.9L, Mean Corpuscular Volume 93, Mean Corpuscular Hemoglobin 31.0, Mean Corpuscular Hemoglobin Concent 33.5, Red Cell Distribution Width 12.7, Platelet Count 388, Mean Platelet Volume 6.3L, Neutrophils (%) (Auto) 83.3H, Lymphocytes (%) (Auto) 8.6L, Monocytes (%) (Auto) 7.2, Eosinophils (%) (Auto) 0.1, Basophils (%) (Auto) 0.6 ANABELL CONTRERAS Jun 22, 2017 22:59
[2017-06-23 00:39] LABS: CORTISOL LC 15.1 ug/dL (.); FREE TRIIODOTHYRONINE 2.3 pg/mL (2.0-4.4)
--- NOTE | 2017-06-24 13:17 | Discharge Summary ---
Discharge Summary Hospital Course Date of Admission Jun 16, 2017 at 22:30 Date of Discharge Jun 22, 2017 at 14:35 Admitting Diagnosis sepsis, pneumonia HPI Alison Morin is a 87 year old male who was admitted on Jun 16, 2017 at 22: 30 for Sepsis,Pneumonia Hospital Course dc summary #[id number] Discharge Medications Continued Medications: Aspirin* (Aspirin*) 81 Mg Tab.chew 81 MG ORAL DAILY, TAB Atenolol (Tenormin) 100 Mg Tablet 50 MG ORAL DAILY, TAB Dexlansoprazole (Dexilant) 30 Mg Cap.dr.bp 50 MG ORAL DAILY, MG Docusate Sodium (Docusate Sodium) 50 Mg/5 Ml Liquid 100 MG ORAL BID, #120 EA Donepezil Hcl* (Donepezil Hcl*) 10 Mg Tab.rapdis 10 MG ORAL DAILY, TAB Escitalopram Oxalate (Lexapro) 5 Mg Tablet 10 MG ORAL DAILY, TAB Ferrous Sulfate (Ferrous Sulfate) 325 Mg Tablet.dr 325 MG ORAL BID, #30 TAB 0 Refills Glimepiride* (Glimepiride*) 4 Mg Tablet 4 MG ORAL BIDAC, TAB Meclizine Hcl* (Meclizine*) 25 Mg Tablet 25 MG ORAL BIDAC, TAB [place]-3 Fatty Acids/Fish Oil ([place] 3 1,000 Mg Softgel) 1 Each Capsule 2 EACH PO DAILY, CAP Tamsulosin HCl (Flomax) 0.4 Mg Cap.er.24h 0.4 MG ORAL DAILY, CAP Discharge Condition Upon Discharge: stable Discharge Disposition Patient was discharged to Home (01) Discharge Diagnoses: Discharge Instructions Discharge Instructions Special Instructions I have been assigned to complete a D/C Summary on this account. I was not involved in the patient management Aby Warner NP ([place]tein) Jun 24, 2017 13:17
--- NOTE | 2017-06-25 05:24 | Discharge Summary 2 SIG ---
DATE OF ADMISSION: 06/16/2017 DATE OF DISCHARGE: 06/22/2017 REASON FOR ADMISSION: 87-year-old male with history of hypertension, diabetes, pacemaker, was brought to emergency room for evaluation by family from home due to altered mental status for the last two days. The patient was brought by paramedics and no family member were in the emergency room to provide additional history. In the emergency room, it was found that the patient had a low-grade fever, leukocytosis. Lactic acid - 3.1. EKG revealed normal sinus with pacing, chest x-ray showed possible left lower lobe infiltrate. The patient was admitted for further management. ADMITTING DIAGNOSES: 1. Acute encephalopathy. 2. Sepsis. 3. Possible pneumonia. 4. Diabetes mellitus. 5. Hypertension. 6. Pacemaker. HOSPITAL STAY: The patient was admitted to the telemetry floor. Cardiology and Infectious Disease specialist consults were requested. The patient was on empiric antibiotics. The patient was followed up with chest x-ray. Supplemental oxygen provided as needed to keep saturation above 92%. Pulmonary toilet in form of nebulizing treatment and chest physical therapy was provided. Follow up chest x-ray showed improvement. The patient status post antibiotic treatment for presumed pneumonia. Infectious Disease specialist closely followed. Leukocytosis resolved. Blood cultures were negative. The patient undergone a bedside and video swallow evaluations, which revealed that the patient has high aspiration risk. Speech therapist modified diet and instructed family on strict aspiration and reflux precaution and assistance with feeding. Ditching Machine Operator had seen the patient. Pacemaker was interrogated and appeared to function properly. The patient appeared to be non-pacemaker dependent. Blood pressure was stable with current regimen. According to dry goods clerk, the proBNP was not significantly elevated and troponin was negative. Ditching Machine Operator cleared patient for discharge and cleared to discontinue telemetry. Blood sugar was stable with sliding scale of insulin. Prior to discharge, pulse oximetry was stable on the room air. Gastrointestinal specialist seen the patient due to the history of colon cancer. Family declined the CT of the abdomen and pelvis. Bowel regimen was provided. The patient was stable for discharge home. DISCHARGE DIAGNOSES: 1. Acute encephalopathy on chronic end-stage Alzheimer dementia. 2. Sepsis. 3. Pneumonia. 4. Diabetes mellitus. 5. Hypertension. 6. Status post permanent pacemaker implantation. 7. Subacute chronic left subdural hematoma. 8. History of colon cancer. 9. Peripheral vascular disease. 10. Hyperlipidemia. 11. High aspiration risk. 12. Elevated ESR. DISCHARGE MEDICATIONS: See medication reconciliation list. DISCHARGE INSTRUCTIONS: The patient was discharged home. Follow up with primary medical doctor. Sebastian Priest M.D. I have been assigned to dictate discharge summary on this account and I was not involved in the patient's management. Aby DouglasBronxcare Health SystemNi NBrittney DR: ZACK JOB#: [id number] CC: SADIE
--- NOTE | 2017-06-25 10:20 | Diagnostic Imaging Report ---
Indications: DYSPHAGIA Technique: Patient ingested multiple substances under the supervision of speech pathology. Video fluoroscopic recording performed. Total fluoroscopy time 238 seconds. Total dose area product 0.04271 mGycm2 Comparison: none Findings: Ingestion of thin liquid barium demonstrates early pooling in the vallecula, deep laryngeal penetration prior to swallowing which clears with swallowing. Ingestion of nectar thick liquid barium demonstrates minimal supraglottic laryngeal penetration. There is marked early pooling, and some residual in the vallecula after swallowing. Ingestion of honey thick liquid barium and barium pur?e demonstrates early pooling in the vallecula and puriform sinuses. Some delayed residual, no aspiration or penetration. Minimal early pooling with barium-soaked foot, no aspiration or penetration. Impression: Positive for penetration of thin liquid barium and nectar thick liquid barium. Other findings as noted
== END 2017-06-22 14:35 | disposition home or self-care (01) | DRG 871 ==
LOC: EDBD 20:40 → EMR 21:03 → 2E 22:30 → EDBEDREQ 06-17 00:01 → 4E 06-19 21:49
DX: A41.9 Sepsis, unspecified organism (principal); J18.9 Pneumonia, unspecified organism; G93.40 Encephalopathy, unspecified; I62.02 Nontraumatic subacute subdural hemorrhage; E11.9 Type 2 diabetes mellitus without complications; I10 Essential (primary) hypertension; Z95.0 Presence of cardiac pacemaker; G30.9 Alzheimer's disease, unspecified; F02.80 Dementia in other diseases classified elsewhere, unspecified severity, without behavioral disturbance, psychotic disturbance, mood disturbance, and anxiety; Z85.038 Personal history of other malignant neoplasm of large intestine; I73.9 Peripheral vascular disease, unspecified; E78.5 Hyperlipidemia, unspecified; Z91.81 History of falling; I25.10 Atherosclerotic heart disease of native coronary artery without angina pectoris; N40.0 Benign prostatic hyperplasia without lower urinary tract symptoms; F32.9 Major depressive disorder, single episode, unspecified; F41.9 Anxiety disorder, unspecified
CPT/HCPCS: 36415; 71010; 74000; 74230; 80048; 80053; 81003; 82378; 82533; 82550; 82553; 82607; 82746; 82962; 83540; 83550; 83605; 83615; 83735; 83880; 83930; 84100; 84439; 84443; 84481; 84484; 84550; 85007; 85025; 85044; 85060; 85610; 85651; 85730; 87040; 87070; 87181; 87205; 93005; 94664; 99285; J1815; J2405